=== PATIENT | female | born 1940 | race Caucasian/White ===

== ENCOUNTER 2017-04-04 11:09 | Inpatient (IN) | payer MEDICARE ==
[~2017-04-04] VITALS: Ht 165.1 cm; Wt 79.9 kg
[2017-04-04 12:14] LABS: BASOPHILS % (AUTO) 0 % (0-10); EOSINOPHILS % (AUTO) 0 % (0-10); LYMPHOCYTES # (AUTO) 0.5 X 10^3 (1.0-4.0); LYMPHOCYTES % (AUTO) 3 % (12-44); MEAN CORPUSCULAR HEMOGLOBIN 29 PG (25-34); MEAN CORPUSCULAR HGB CONC 34 G/DL (32-36); MEAN CORPUSCULAR VOLUME 86 FL (80-99); MEAN PLATELET VOLUME 10.8 FL (7.4-10.4); MONOCYTES # (AUTO) 1.3 X 10^3 (0.0-1.0); MONOCYTES % (AUTO) 9 % (0-12); NEUTROPHILS # (AUTO) 12.9 X 10^3 (1.8-7.8); NEUTROPHILS % (AUTO) 88 % (42-75); PLATELET COUNT 196 10^3/uL (130-400); RED BLOOD COUNT 4.53 10^6/uL (4.35-5.85); RED CELL DISTRIBUTION WIDTH 12.5 % (10.0-14.5); WHITE BLOOD COUNT 14.7 10^3/uL (4.3-11.0)
[2017-04-04] MEDS ORDERED: ACETAMINOPHEN 500 MG TAB (TYLENOL) PO PRN ×2 (12:15→15:45)
[2017-04-04 12:26] LABS: ALBUMIN 3.9 GM/DL (3.2-4.5); BILIRUBIN,TOTAL 0.8 MG/DL (0.1-1.0); CALCIUM 9.5 MG/DL (8.5-10.1); POTASSIUM 3.7 MMOL/L (3.6-5.0); TOTAL PROTEIN 6.6 GM/DL (6.4-8.2)
[2017-04-04 12:38] LABS: PROTHROMBIN TIME PATIENT 13.3 SEC (12.2-14.7)
[2017-04-04 12:46] LABS: BAND NEUTROPHILS 6 %; LYMPHOCYTES % (MANUAL) 9 %; NEUTROPHILS % (MANUAL) 73 %
--- NOTE | 2017-04-04 12:47 | Diagnostic Imaging Report ---
INDICATION: Chills and nausea and fever Frontal chest obtained at 1235 hrs pm. Heart is borderline in size. Aorta is tortuous. There is alveolar infiltrate in the left midlung suspicious for pneumonia. The right lung is clear. There is no pneumothorax or pleural fluid. IMPRESSION: Alveolar infiltrate in left midlung suspicious for pneumonia. Followup is recommended. Dictated by: Dictated on workstation # [id number]
[2017-04-04] MEDS ORDERED: NS (IVPB) 250 ML ONE (12:59)
[2017-04-04] MEDS ORDERED: cefTRIAXone 1 GM (ROCEPHIN) VIAL IV STA (13:00)
[2017-04-04] MEDS ORDERED: NS IV PRN (13:00)
--- NOTE | 2017-04-04 13:56 | ED Fever ---
History of Present Illness General Chief Complaint: Fever-Adult/Adol Stated Complaint: N/V/FEVER Nursing Triage Note: AMB TO ROOM REPORTS THAT SHE WOKE UP AT 1130 LAST NIGHT WITH CHILL AND NAUSEA. FEVER AT HOME WAS 101 Sepsis Screen: Possible Sepsis Risk Source: patient, family (daughter) Exam Limitations: no limitations History of Present Illness Time seen by provider: 13:30 Initial Comments 76yo female patient presents to the ED with c/o chills, fever, and nausea beginning last night at 2330. patient states today she continues to c/o malaise. Fever at home was 101. Timing/Duration: constant, yesterday Fever Quality: greater than 100.5 F Fever Therapy [employer]: none Allergies and Home Medications Allergies Coded Allergies: No Known Drug Allergies (Unverified , 04/04/17) Home Medications Aspirin 81 Mg Tablet.dr, 81 MG PO DAILY, (Reported) Calcium Polycarbophil 625 Mg Tablet, 625 MG PO DAILY, (Reported) Gemfibrozil 600 Mg Tablet, 600 MG PO BID, (Reported) Glucosamine Sulfate 2Kcl 1,000 Mg Tablet, 1,000 MG PO 1500, (Reported) Levothyroxine Sodium 50 Mcg Tablet, 50 MCG PO DAILY, (Reported) Pantoprazole Sodium 40 Mg Tablet.dr, 40 MG PO HS, (Reported) Constitutional: chills, fever, malaise, other (fatigue) EENTM: no symptoms reported Respiratory: No cough, No dyspnea on exertion, No hemoptysis, No orthopnea, No phlegm, short of breath, No wheezing Cardiovascular: No chest pain, No palpitations, No syncope Gastrointestinal: No abdominal pain, No constipation, No diarrhea, No nausea, No vomiting Genitourinary: No decreased output, No dysuria, No frequency, No pain Musculoskeletal: no symptoms reported Skin: no symptoms reported Psychiatric/Neurological: No Symptoms Reported All Other Systems Reviewed Negative Unless Noted: Yes (Negative excepted noted.) Past Gvglbqb-Qwwxag-Esqqzi Hx Patient Social History Alcohol Use: Denies Use Recreational Drug Use: No Smoking Status: Never a Smoker Recent Foreign Travel: No Contact w/Someone Who Travel: No Recent Infectious Disease Expo: No Surgeries History of Surgeries: Yes Surgeries: Tonsillectomy Respiratory History of Respiratory Disorde: No Cardiovascular History of Cardiac Disorders: No Neurological History of Neurological Disord: No Genitourinary History of Genitourinary Disor: No Gastrointestinal History of Gastrointestinal Di: No Musculoskeletal History of Musculoskeletal Dis: No Endocrine History of Endocrine Disorders: No HEENT History of HEENT Disorders: No Cancer History of Cancer: No Psychosocial History of Psychiatric Problem: No Integumentary History of Skin or Integumenta: No Reviewed Nursing Assessment Reviewed/Agree w Nursing PMH: Yes Family Medical History Significant Family History: No Pertinent Family Hx Physical Exam Vital Signs Vital Sign - Last 12Hours 04/04/17 11:18 Temp 100.6 Pulse 96 Resp 18 B/P (MAP) 114/62 Pulse Ox 93 O2 Delivery Room Air Capillary Refill : Less Than 3 Seconds General Appearance: WD/WN, no apparent distress HEENT: PERRL/EOMI, normal ENT inspection, TMs normal, pharynx normal Neck: supple, normal inspection Respiratory: lungs clear, normal breath sounds, no respiratory distress, no accessory muscle use Cardiovascular: normal peripheral pulses, regular rate, rhythm, no edema, no murmur Gastrointestinal: normal bowel sounds, non tender, soft, no organomegaly Extremities: no pedal edema, no calf tenderness, normal capillary refill Neurologic/Psychiatric: alert, normal mood/affect, oriented x 3 Skin: normal color, warm/dry Focused Exam Evaluation Lactate Level Laboratory Tests 04/04/17 12:20: Lactic Acid Level 1.04 Lactic Acid Level Laboratory Tests Test 04/04/17 12:20 Lactic Acid Level 1.04 MMOL/L (0.50-2.00) Progress/Results/Core Measures Results/Orders Lab Results Laboratory Tests Test 04/04/17 11:41 04/04/17 12:20 Range/Units White Blood Count 14.7 H 4.3-11.0 10^3/uL Red Blood Count 4.53 4.35-5.85 10^6/uL Hemoglobin 13.3 11.5-16.0 G/DL Hematocrit 39 35-52 % Mean Corpuscular Volume 86 80-99 FL Mean Corpuscular Hemoglobin 29 25-34 PG Mean Corpuscular Hemoglobin Concent 34 32-36 G/DL Red Cell Distribution Width 12.5 10.0-14.5 % Platelet Count 196 130-400 10^3/uL Mean Platelet Volume 10.8 H 7.4-10.4 FL Neutrophils (%) (Auto) 88 H 42-75 % Lymphocytes (%) (Auto) 3 L 12-44 % Monocytes (%) (Auto) 9 0-12 % Eosinophils (%) (Auto) 0 0-10 % Basophils (%) (Auto) 0 0-10 % Neutrophils # (Auto) 12.9 H 1.8-7.8 X 10^3 Lymphocytes # (Auto) 0.5 L 1.0-4.0 X 10^3 Monocytes # (Auto) 1.3 H 0.0-1.0 X 10^3 Eosinophils # (Auto) 0.0 0.0-0.3 10^3/uL Basophils # (Auto) 0.0 0.0-0.1 10^3/uL Neutrophils % (Manual) 73 % Lymphocytes % (Manual) 9 % Monocytes % (Manual) 12 % Band Neutrophils 6 % Blood Morphology Comment NORMAL Sodium Level 140 135-145 MMOL/L Potassium Level 3.7 3.6-5.0 MMOL/L Chloride Level 106 98-107 MMOL/L Carbon Dioxide Level 23 21-32 MMOL/L Anion Gap 11 5-14 MMOL/L Blood Urea Nitrogen 15 7-18 MG/DL Creatinine 1.00 0.60-1.30 MG/DL Estimat Glomerular Filtration Rate 54 BUN/Creatinine Ratio 15 Glucose Level 112 H 70-105 MG/DL Calcium Level 9.5 8.5-10.1 MG/DL Total Bilirubin 0.8 0.1-1.0 MG/DL Aspartate Amino Transf (AST/SGOT) 23 5-34 U/L Alanine Aminotransferase (ALT/SGPT) 12 0-55 U/L Alkaline Phosphatase 54 40-136 U/L Total Protein 6.6 6.4-8.2 GM/DL Albumin 3.9 3.2-4.5 GM/DL Prothrombin Time 13.3 12.2-14.7 SEC INR Comment 1.0 0.8-1.4 Activated Partial Thromboplast Time 27 24-35 SEC Lactic Acid Level 1.04 0.50-2.00 MMOL/L Micro Results Microbiology 04/04/17 Influenza Types A,B Antigen (DEJUAN) - Final, Complete My Orders Orders - SANDRA HERNANDEZ Cbc With Automated Diff (04/04/17 12:05) Comprehensive Metabolic Panel (04/04/17 12:05) Lactic Acid Analyzer (04/04/17 12:05) Blood Culture (04/04/17 12:05) Sputum Culture (04/04/17 12:05) Ua Culture If Indicated (04/04/17 12:05) Protime With Inr (04/04/17 12:05) Partial Thromboplastin Time (04/04/17 12:05) Chest 1 View, Ap/Pa Only (04/04/17 12:05) Acetaminophen Tablet (Tylenol Tablet) (04/04/17 12:15) Saline Lock/Iv-Start (04/04/17 12:05) Saline Lock/Iv-Start (04/04/17 12:05) Ekg Tracing (04/04/17 12:05) Vital Signs Adult Sepsis Patie Q1H (04/04/17 12:05) Remove Rings In Anticipation O (04/04/17 12:05) Influenza A And B Antigens (04/04/17 12:05) Manual Differential (04/04/17 11:41) Ns Iv 1000 Ml (Sodium Chloride 0.9%) (04/04/17 13:00) Ceftriaxone Injection (Rocephin Injectio (04/04/17 13:00) Ns (Ivpb) (Sodium Chloride 0.9%) (04/04/17 12:59) Medications Given in ED Vital Signs/I&O Vital Sign - Last 12Hours 04/04/17 11:18 Temp 100.6 Pulse 96 Resp 18 B/P (MAP) 114/62 Pulse Ox 93 O2 Delivery Room Air Blood Pressure Mean: 79 ECG Initial ECG Impression Date: Apr 04, 2017 Initial ECG Impression Time: 12:37 Initial ECG Rate: 82 Initial ECG Rhythm: Normal Sinus Initial ECG Intervals: Normal Initial ECG Impression: Normal Initial ECG Comparisson: No Previous ECG Available Comment sinus rhythm. No STEMI or arrhythmia noted. ECG reviewed with Dr. Stubbs. Diagnostic Imaging Diagonstic Imaging: Xray Plain Films/CT/US/NM/MRI: chest Comments Frontal chest obtained at 1235 hrs pm. Heart is borderline in size. Aorta is tortuous. There is alveolar infiltrate in the left midlung suspicious for pneumonia. The right lung is clear. There is no pneumothorax or pleural fluid. IMPRESSION: Alveolar infiltrate in left midlung suspicious for pneumonia. Followup is recommended. Dictated by: Dictated on workstation # [id number] Reviewed: Reviewed by Me Departure Communication (Admissions) Time/Spoke to Admitting Phy: 15:[address] deepak reyes graciously accepts patient to his medical service for IV antibiotics, IVF, and further management. Progress Notes patient seen and evaluated. Labs, ECG, and CXR obtained. Patient was given Rocephin 1 g in the ED x1 dose. All laboratory findings, diagnostic study findings, and plan for admission discussed with the patient. patient verbalizes understanding and agrees with the treatment plan.Plan for admission discussed with Dr. Stubbs, he agrees with the plan of care. Impression Impression: Primary Impression: Sepsis Qualified Codes: A41.9 - Sepsis, unspecified organism Additional Impression: Pneumonia Qualified Codes: J18.9 - Pneumonia, unspecified organism Disposition: ADMITTED INPATIENT Condition: Stable Admissions Decision to Admit Reason: Admit from ER (General) Decision to Admit/Date: Apr 04, 2017 Time/Decision to Admit Time: 13:55 Departure-Patient Inst. Referrals: DEEPAK REYES MD (PCP/Family) Primary Care Physician SANDRA HERNANDEZ Apr 04, 2017 13:56
[2017-04-04 15:20] VITALS: BP 88/51
[2017-04-04] MEDS ORDERED: AZITHROMYCIN 500 MG/NS 250 ML IVPB IV NR ×2 (15:39)
[2017-04-04] MEDS ORDERED: PANT40TA3 PO (15:41)
[2017-04-04] MEDS ORDERED: GEMF600T3 PO (15:41)
[2017-04-04] MEDS ORDERED: LEVO50TA6 PO (15:41)
[2017-04-04] MEDS ORDERED: CALC625T14 PO (15:43)
[2017-04-04] MEDS ORDERED: GLUC100016 PO (15:43)
[2017-04-04] MEDS ORDERED: ASPI-983 PO (15:43)
[2017-04-04] MEDS ORDERED: ONDANSETRON 4 MG/2 ML (SDV) Z0FRAN IV PRN (15:45)
[2017-04-04] MEDS ORDERED: IBUPROFEN 600 MG (MOTRIN) TAB PO PRN (15:45)
[2017-04-04] MEDS ORDERED: CATHETER FLUSH 10 ML SYR IV PRN ×2 (15:45)
[2017-04-04 16:11] VITALS: BP 114/62
[2017-04-04] MEDS ORDERED: RT-ALBUTEROL SULF 2.5 MG/3 ML PRE-MIX VIAL IH PRN (16:30)
[2017-04-04] MEDS: NS IV 1000 ML 1,000 ML IV SCH ×3 (16:48→23:45)
[2017-04-04 16:53] LABS: BILIRUBIN,URINE NEGATIVE (NEGATIVE); KETONES,URINE NEGATIVE (NEGATIVE); LEUKOCYTE ESTERASE ,URINE 2+ (NEGATIVE); NITRITE,URINE NEGATIVE (NEGATIVE); PH,URINE 6 (5-9); PROTEIN,URINE NEGATIVE (NEGATIVE); UROBILINOGEN,URINE NORMAL (NORMAL)
[2017-04-04] MEDS ORDERED: INFLUENZA TRIvalent 2017-2018 0.5 ML/45 MCG SYR IM ONE (17:00)
[2017-04-04 17:06] LABS: SQUAMOUS EPITHELIAL CELL,UR RARE /HPF; WBC,URINE 0-2 /HPF
[2017-04-04] MEDS ORDERED: ENOXAPARIN 40 MG/0.4 ML (LOVENOX) SYR SC SCH (19:00)
--- NOTE | 2017-04-04 19:05 | History & Physical ---
History of Present Illness History of Present Illness Reason for visit/HPI 76 yo F admitted for overnight observation for left lung pneumonia- pt report she woke up last night with severe nausea and vomiting; she had a fever of 101F as well and felt severely ill so she decided to come to the ER. Pt reports she had a similar issue about 4 weeks ago but she did fluid hydration and got better. This time though she felt more ill. Chest xray showed a left mid-lung opacity pneumonia. Pt reports her urine was dark and odorous so she thought she might have an UTI. UA was negative for UTI. Pt has been having worsening GERD so she recently restarted her PPI. ER course- cultures obtained- WBC noted to be elevated- and febrile so she met sepsis criteria. She was given IVF and rocephin as well as azithromycin. Her lactic acid was normal. Pt was admitted to room 419 for observation. Date of Admission Apr 04, 2017 at 14:05 Date Seen by Provider: Apr 04, 2017 Time Seen by Provider: 18:30 I consulted on this patient on 04/04/17 19:00 Attending Physician Serjio Greco MD Admitting Physician Serjio Greco MD Consult Allergies and Home Medications Allergies Coded Allergies: No Known Drug Allergies (Unverified , 04/04/17) Home Medications Aspirin 81 Mg Tablet.dr, 81 MG PO DAILY, (Reported) Calcium Polycarbophil 625 Mg Tablet, 625 MG PO DAILY, (Reported) Gemfibrozil 600 Mg Tablet, 600 MG PO BID, (Reported) Glucosamine Sulfate 2Kcl 1,000 Mg Tablet, 1,000 MG PO 1500, (Reported) Levothyroxine Sodium 50 Mcg Tablet, 50 MCG PO DAILY, (Reported) Pantoprazole Sodium 40 Mg Tablet.dr, 40 MG PO HS, (Reported) Past Ooxnhbs-Swxduu-Opwlwa Hx Patient Social History Marrital Status: Alcohol Use: Denies Use Recreational Drug Use: No Smoking Status: Never a Smoker Physical Abuse Screen: No Sexual Abuse: No Recent Foreign Travel: No Contact w/other who traveled: No Recent Infectious Disease Expo: No Surgeries Yes Tonsillectomy Respiratory No Cardiovascular No Neurological No Genitourinary No Gastrointestinal Yes Gastroesophageal Reflux Musculoskeletal No Endocrine History of Endocrine Disorders: No HEENT History of HEENT Disorders: No Cancer No Psychosocial History of Psychiatric Problem: No Integumentary History of Skin or Integumenta: No Review of Systems Review of Systems General: Chills, Night Sweats, Fatigue HEENT: No Head Aches, No Visual Changes, No Eye Pain Pulmonary: No Dyspnea, No Cough Cardiovascular: No: Chest Pain, Palpitations, Orthopnea Gastrointestinal: Nausea, Vomiting, No: Abdominal Pain Genitourinary: No Dysuria, No Frequency Musculoskeletal: No: neck pain, shoulder pain Neurological: No: Weakness, Numbness, Incoordination Physical Exam Vital Signs Vital Sign - Last 12Hours 04/04/17 11:18 Temp 100.6 Pulse 96 Resp 18 B/P (MAP) 114/62 Pulse Ox 93 O2 Delivery Room Air Capillary Refill : Less Than 3 Seconds General Appearance: No Apparent Distress, WD/WN HEENT: PERRL/EOMI Neck: Full Range of Motion, Supple Respiratory: Chest Non Tender, No Accessory Muscle Use, No Respiratory Distress , No Crackles, Decreased Breath Sounds (mid left lung), No Respiratory Distress , No Rhonci, No Stridor Cardiovascular: Regular Rate, Rhythm, No Edema, No JVD, No Murmur Gastrointestinal: Normal Bowel Sounds, Non Tender, Soft Back: Normal Inspection Extremity: Non Tender, No Calf Tenderness Neurologic/Psychiatric: Alert, Oriented x3, No Motor/Sensory Deficits, Normal Mood/Affect Skin: Normal Color, Warm/Dry, Cool Lymphatic: No Adenopathy Assessment/Plan Assessment/Plan Assessment/Plan 76 yo F Sepsis due to respiratory source- Left pneumonia - continue rocephin, azithromycin- IVF- monitor cultures. GERD- on H2 juancho- pt will continue her PPI as an outpt. avoid triggers. nausea/vomiting- improved- will advance diet as tolerated. DVT ppx: lovenox daily Dispo: admitted for overnight observation- will give pt a dose of rocephin tomorrow- plan to d/c to home on 5 more days of cefdinir and 3 days of azithromycin. Continue IVF. Monitor N/V. Plan to repeat cxr in 6 weeks to follow up resolution of pneumonia. Problems: Clinical Quality Measures DVT/VTE Risk/Contraindication: Risk Factor Score Per Nursin RFS Level Per Nursing on Admit: 3=High SERJIO GRECO MD Apr 04, 2017 19:05
[2017-04-04] MEDS: FAMOTIDINE 20 MG (PEPCID) TABLET PO SCH (19:53)
[2017-04-04 20:05] VITALS: BP 121/72
[2017-04-04] MEDS: CATHETER FLUSH 10 ML SYR IV SCH (21:35)
[2017-04-04 23:52] VITALS: BP 120/64
[2017-04-05] MEDS: NS IV 1000 ML 1,000 ML IV SCH ×2 (03:47→08:02)
[2017-04-05 04:17] VITALS: BP_SYST 101; BP_SYST 138; BP_DIAS 56; BP_DIAS 63
[2017-04-05] MEDS: CATHETER FLUSH 10 ML SYR IV SCH ×2 (05:16→08:02)
[2017-04-05 06:13] LABS: BASOPHILS % (AUTO) 0 % (0-10); EOSINOPHILS # (AUTO) 0.1 10^3/uL (0.0-0.3); EOSINOPHILS % (AUTO) 1 % (0-10); LYMPHOCYTES # (AUTO) 0.7 X 10^3 (1.0-4.0); LYMPHOCYTES % (AUTO) 9 % (12-44); MEAN CORPUSCULAR HEMOGLOBIN 29 PG (25-34); MEAN CORPUSCULAR HGB CONC 33 G/DL (32-36); MEAN CORPUSCULAR VOLUME 89 FL (80-99); MEAN PLATELET VOLUME 10.6 FL (7.4-10.4); MONOCYTES # (AUTO) 0.6 X 10^3 (0.0-1.0); MONOCYTES % (AUTO) 7 % (0-12); NEUTROPHILS # (AUTO) 6.8 X 10^3 (1.8-7.8); NEUTROPHILS % (AUTO) 83 % (42-75); PLATELET COUNT 145 10^3/uL (130-400); RED BLOOD COUNT 3.48 10^6/uL (4.35-5.85); RED CELL DISTRIBUTION WIDTH 12.8 % (10.0-14.5); WHITE BLOOD COUNT 8.1 10^3/uL (4.3-11.0)
[2017-04-05 06:27] LABS: ALANINE AMINOTRANSFERASE 8 U/L (0-55); ALBUMIN 2.8 GM/DL (3.2-4.5); ANION GAP 6 MMOL/L (5-14); ASPARTATE AMINO TRANSFERASE 14 U/L (5-34); BILIRUBIN,TOTAL 0.5 MG/DL (0.1-1.0); BLOOD UREA NITROGEN 11 MG/DL (7-18); BUN/CREATININE RATIO 16; CALCIUM 7.6 MG/DL (8.5-10.1); CARBON DIOXIDE 21 MMOL/L (21-32); CHLORIDE 117 MMOL/L (98-107); GFR ESTIMATED > 60; GLUCOSE 90 MG/DL (70-105); POTASSIUM 3.3 MMOL/L (3.6-5.0); SODIUM 144 MMOL/L (135-145); TOTAL PROTEIN 4.7 GM/DL (6.4-8.2)
--- NOTE | 2017-04-05 07:17 | Progress Note (SOAP) ---
Subjective Subjective Date Seen by Provider: Apr 05, 2017 Time Seen by Provider: 07:13 76 yo F admitted for pneumonia; pt reports she feels well and ready to go home - her back is starting to hurt due to the bed being uncomfortable. Denies fevers. Her chest feels a little heavy and a little discomfort when the nurses have her take a deep breath. I was contacted at 710am by lab that 1 of 3 culture bottles are growing gram + [place] that has a lot of gas production- suspected clostridium Review of Systems General: No Chills, No Night Sweats, Fatigue HEENT: Head Aches, No Visual Changes, No Eye Pain Pulmonary: No Dyspnea, No Cough Cardiovascular: Chest Pain, No: Palpitations, Orthopnea Gastrointestinal: No: Nausea, Vomiting, Abdominal Pain Genitourinary: No Dysuria, No Frequency Musculoskeletal: No: neck pain, shoulder pain Neurological: No: Weakness, Numbness, Incoordination All Other Systems Reviewed All Other Systems Reviewed: Yes (Negative excepted noted.) Objective Exam Vital Signs Vital Signs Date Time Temp Pulse Resp B/P (MAP) Pulse Ox O2 Delivery O2 Flow Rate FiO2 04/05/17 04:17 97.7 68 20 101/56 92 Room Air 04/04/17 23:52 98.6 69 18 120/64 95 Room Air 04/04/17 21:00 Room Air 04/04/17 20:05 98.6 67 20 121/72 94 Room Air 04/04/17 19:26 90 Room Air 04/04/17 16:19 92 Room Air 04/04/17 16:11 68 92 04/04/17 15:20 92 Room Air 04/04/17 15:20 97.7 70 18 88/51 92 Room Air 04/04/17 15:00 98.8 70 18 96 Room Air 04/04/17 11:18 100.6 96 18 114/62 93 Room Air General Appearance: No Apparent Distress, WD/WN HEENT: PERRL/EOMI Neck: Full Range of Motion, Supple Respiratory: Chest Non Tender, No Accessory Muscle Use, No Respiratory Distress , No Crackles, Decreased Breath Sounds (mid left lung), No Respiratory Distress , No Rhonci, No Stridor Cardiovascular: Regular Rate, Rhythm, No Edema, No JVD, No Murmur Gastrointestinal: Normal Bowel Sounds, Non Tender, Soft Back: Normal Inspection Extremity: Non Tender, No Calf Tenderness Neurologic/Psychiatric: Alert, Oriented x3, No Motor/Sensory Deficits, Normal Mood/Affect Skin: Normal Color, Warm/Dry, Cool Lymphatic: No Adenopathy Results Lab Laboratory Tests 04/04/17 11:41: White Blood Count 14.7H, Red Blood Count 4.53, Hemoglobin 13.3, Hematocrit 39, Mean Corpuscular Volume 86, Mean Corpuscular Hemoglobin 29, Mean Corpuscular Hemoglobin Concent 34, Red Cell Distribution Width 12.5, Platelet Count 196, Mean Platelet Volume 10.8H, Neutrophils (%) (Auto) 88H, Lymphocytes (%) (Auto) 3L, Monocytes (%) (Auto) 9, Eosinophils (%) (Auto) 0, Basophils (%) (Auto) 0, Neutrophils # (Auto) 12.9H, Lymphocytes # (Auto) 0.5L, Monocytes # (Auto) 1.3H, Eosinophils # (Auto) 0.0, Basophils # (Auto) 0.0, Neutrophils % (Manual) 73, Lymphocytes % (Manual) 9, Monocytes % (Manual) 12, Band Neutrophils 6, Blood Morphology Comment NORMAL, Sodium Level 140, Potassium Level 3.7, Chloride Level 106, Carbon Dioxide Level 23, Anion Gap 11, Blood Urea Nitrogen 15, Creatinine 1.00, Estimat Glomerular Filtration Rate 54, BUN/Creatinine Ratio 15 , Glucose Level 112H, Calcium Level 9.5, Total Bilirubin 0.8, Aspartate Amino Transf (AST/SGOT) 23, Alanine Aminotransferase (ALT/SGPT) 12, Alkaline Phosphatase 54, Total Protein 6.6, Albumin 3.9 04/04/17 12:20: Prothrombin Time 13.3, INR Comment 1.0, Activated Partial Thromboplast Time 27, Lactic Acid Level 1.04 04/04/17 16:45: Urine Color YELLOW, Urine Clarity CLEAR, Urine pH 6, Urine Specific [place] 1.010L, Urine Protein NEGATIVE, Urine Glucose (UA) NEGATIVE, Urine Ketones NEGATIVE, Urine Nitrite NEGATIVE, Urine Bilirubin NEGATIVE, Urine Urobilinogen NORMAL, Urine Leukocyte Esterase 2+H, Urine RBC (Auto) NEGATIVE, Urine RBC NONE , Urine WBC 0-2, Urine Squamous Epithelial Cells RARE, Urine Crystals NONE, Urine Bacteria NEGATIVE, Urine Casts NONE, Urine Mucus NEGATIVE, Urine Culture Indicated NO 04/05/17 05:30: White Blood Count 8.1, Red Blood Count 3.48L, Hemoglobin 10.2#L, Hematocrit 31L , Mean Corpuscular Volume 89, Mean Corpuscular Hemoglobin 29, Mean Corpuscular Hemoglobin Concent 33, Red Cell Distribution Width 12.8, Platelet Count 145, Mean Platelet Volume 10.6H, Neutrophils (%) (Auto) 83H, Lymphocytes (%) (Auto) 9L, Monocytes (%) (Auto) 7, Eosinophils (%) (Auto) 1, Basophils (%) (Auto) 0, Neutrophils # (Auto) 6.8, Lymphocytes # (Auto) 0.7L, Monocytes # (Auto) 0.6, Eosinophils # (Auto) 0.1, Basophils # (Auto) 0.0, Sodium Level 144, Potassium Level 3.3L, Chloride Level 117#H, Carbon Dioxide Level 21, Anion Gap 6, Blood Urea Nitrogen 11, Creatinine 0.70, Estimat Glomerular Filtration Rate > 60, BUN/ Creatinine Ratio 16, Glucose Level 90, Calcium Level 7.6L, Total Bilirubin 0.5, Aspartate Amino Transf (AST/SGOT) 14, Alanine Aminotransferase (ALT/SGPT) 8, Alkaline Phosphatase 40, Total Protein 4.7L, Albumin 2.8L Microbiology 04/04/17 Influenza Types A,B Antigen (DEJUAN) - Final, Complete Assessment/Plan Assessment/Plan Assessment/Plan 76 yo F Sepsis due to respiratory source- Left pneumonia - continue rocephin, azithromycin- IVF- monitor cultures. GERD- on H2 juancho- pt will continue her PPI as an outpt. avoid triggers. nausea/vomiting- improved- will advance diet as tolerated. hypokalemia- regular diet, will supplement with one time KCl tab. hypothyroidism- continue levothyroxine. DVT ppx: lovenox daily Dispo: admitted for overnight observation- will discharge to home today- will monitor the blood cultures- suspect contaminant. Pt does not appear ill and parameters including vitals, labs and symptoms are all improved. Problems: Clinical Quality Measures DVT/VTE Risk/Contraindication: Risk Factor Score Per Nursin RFS Level Per Nursing on Admit: 3=High DEEPAK GRECO MD Apr 05, 2017 07:17
[2017-04-05] MEDS ORDERED: KCL 10 MEQ TAB (MICRO K) PO NR (07:30)
[2017-04-05 08:00] VITALS: BP 112/54
[2017-04-05] MEDS: FAMOTIDINE 20 MG (PEPCID) TABLET PO SCH (08:01)
[2017-04-05] MEDS ORDERED: AZITHROMYCIN 250 MG TAB (ZITHROMAX) PO SCH (09:00)
[2017-04-05] MEDS ORDERED: INFLUENZA TRIvalent 2017-2018 0.5 ML/45 MCG SYR IM ONE (10:11)
[2017-04-05] MEDS ORDERED: AZIT250T5 PO (11:06)
[2017-04-05] MEDS ORDERED: CEFD300C3 PO (11:06)
--- NOTE | 2017-04-05 11:10 | Discharge Inst-Simple/Standard ---
Discharge Inst-Standard Discharge Medications New, Converted or Re-Newed RX: Transmitted to Pharmacy Patient Instructions/Follow Up Plan of Care/Instructions/FU: complete the cefdinir and azithromycin for the pneumonia advance diet as tolerated- fluid hydration Activity as Tolerated: Yes Discharge Diet: Eat Small Frequent Meals Return to The Hospital For: worsening breathing worsening chest pain Planned Outpatient Orders/Ref. Pneu Vac Indicated: Yes DEEPAK GRECO MD Apr 05, 2017 11:10
--- NOTE | 2017-04-05 11:13 | Discharge Summary ---
Diagnosis/Chief Complaint Date of Admission Apr 04, 2017 at 14:05 Date of Discharge April 05, 2017 Reason Hospital Visit 76 yo F admitted for overnight observation for left lung pneumonia- pt report she woke up last night with severe nausea and vomiting; she had a fever of 101F as well and felt severely ill so she decided to come to the ER. Pt reports she had a similar issue about 4 weeks ago but she did fluid hydration and got better. This time though she felt more ill. Chest xray showed a left mid-lung opacity pneumonia. Pt reports her urine was dark and odorous so she thought she might have an UTI. UA was negative for UTI. Pt has been having worsening GERD so she recently restarted her PPI. ER course- cultures obtained- WBC noted to be elevated- and febrile so she met sepsis criteria. She was given IVF and rocephin as well as azithromycin. Her lactic acid was normal. Pt was admitted to room 419 for observation. Discharge Summary Hospital Course Labs Laboratory Tests 04/04/17 11:41: White Blood Count 14.7H, Mean Platelet Volume 10.8H, Neutrophils (%) (Auto) 88H , Lymphocytes (%) (Auto) 3L, Neutrophils # (Auto) 12.9H, Lymphocytes # (Auto) 0.5L, Monocytes # (Auto) 1.3H, Glucose Level 112H 04/04/17 12:20: 04/04/17 16:45: Urine Specific [place] 1.010L, Urine Leukocyte Esterase 2+H 04/05/17 05:30: Mean Platelet Volume 10.6H, Neutrophils (%) (Auto) 83H, Lymphocytes (%) (Auto) 9L, Lymphocytes # (Auto) 0.7L, Red Blood Count 3.48L, Hemoglobin 10.2#L, Hematocrit 31L, Potassium Level 3.3L, Chloride Level 117#H, Calcium Level 7.6L, Total Protein 4.7L, Albumin 2.8L Procedures None. Discharge Physical Examination Allergies: Coded Allergies: No Known Drug Allergies (Unverified , 04/04/17) Vitals & I&Os Vital Signs Date Time Temp Pulse Resp B/P (MAP) Pulse Ox O2 Delivery O2 Flow Rate FiO2 04/05/17 08:00 97.5 67 20 112/54 95 Room Air Discharge Home Medications Reviewed and agree with Discharge Medication list on patient's Discharge Instruction sheet Instructions to Patient/Family Please see electronic discharge instructions given to patient. Clinical Quality Measures DVT/VTE Risk/Contraindication: Risk Factor Score Per Nursin RFS Level Per Nursing on Admit: 3=High DEEPAK GRECO MD Apr 05, 2017 11:13
[2017-04-05 11:45] VITALS: BP 145/69
--- NOTE | 2017-04-05 13:48 | Diagnostic Imaging Report ---
PA and lateral views of the chest. INDICATION: Cough and sepsis. FINDINGS: There is slight improvement in the patchy left perihilar infiltrate compared to 04/04/2017. The right lung is clear. The heart size is normal. There is suggestion of a small hiatal hernia. No effusion or pneumothorax. Mediastinum and zen appear unremarkable. IMPRESSION: Improved left perihilar infiltrate. Dictated by: Dictated on workstation # [id number]
== END 2017-04-05 13:06 | disposition home or self-care (01) | DRG 871 ==
LOC: ER 11:15 → 4TH 14:05
PROVIDERS: ADMIT Family Medicine; ATTEND Family Medicine
DX: A41.9 Sepsis, unspecified organism (principal); J18.9 Pneumonia, unspecified organism; K21.9 Gastro-esophageal reflux disease without esophagitis; Z23 Encounter for immunization
CPT/HCPCS: 36415; 71010; 71020; 80053; 81000; 83605; 85007; 85025; 85027; 85610; 85730; 87040; 87804; 93005; 94664; 94760

== ENCOUNTER → 2017-12-31 | Outpatient (CLI) | payer MEDICARE, OTHER ==
[~2017-12-31] MED LIST: ASPI-983 PO; AZIT250T12 PO; CALC625T14 PO; CEFD300C3 PO; GEMF600T4 PO; GLUC100016 PO; LEVO50TA6 PO; PANT40TA3 PO
== END ==
LOC: CARD 11:14
PROVIDERS: ATTEND Internal Medicine Interventional Cardiology
DX: R07.9 Chest pain, unspecified (principal); E78.5 Hyperlipidemia, unspecified; R94.31 Abnormal electrocardiogram [ECG] [EKG]
CPT/HCPCS: 93306

== ENCOUNTER → 2018-01-24 | Outpatient (CLI) | payer MEDICARE, OTHER ==
[~2018-01-24] VITALS: Ht 165.1 cm; Wt 77.1 kg
[~2018-01-24] MED LIST changes: +CATHETER FLUSH 10 ML SYR IV PRN; +REGADENOSON 0.4 MG/5 ML SYR (LEXISCAN) IV ONE
[2018-01-24 09:20] VITALS: BP 135/73
[2018-01-24 09:24] VITALS: BP 175/75
[2018-01-24 14:20] VITALS: BP 135/73
--- NOTE | 2018-01-24 14:20 | Cardiology Stress Test Report ---
Stress Test Report Type of NM Stress Test: Test Type: LEXISCAN 0.4MG/5ML Date of Procedure/Referring: Date of Procedure: Jan 24, 2018 PCP Natali Chase MD Admitting Physician Serjio Louis MD Indications: Chest pain, abnormal EKG Baseline Heart Rate: 55 Baseline Blood Pressure: Blood Pressure Systolic: 135 Blood Pressure Diastolic: 73 Baseline EKG: Baseline EKG: sinus rhythm Summary & Conclusion: Summary: The patient was brought to the stress lab after informed consent was taken. Stress test was performed according to the Lexiscan protocol. 0.4 mg of IV Lexiscan was given. Low-grade exercise was performed. Baseline EKG showed sinus rhythm at 55 BPM. Initial blood pressure was 135/73 mmHg. Maximum heart rate was 92 bpm and blood pressure 175/75 mmHg. Patient did not have any chest pain, arrhythmias or ST segment changes during the stress test. 10.69 mCi of Myoview were given for rest imaging and 30.6 mCi of Myoview given for stress imaging. Transient ischemic dilatation score 1.07, EF 71 percent. Normal wall motion. Normal myocardial perfusion imaging during rest and stress. Conclusion: Pharmacological stress test was negative for ischemia. Normal LV function with no wall motion abnormalities. Normal myocardial perfusion imaging during rest and stress. Natali CHASE MD Jan 24, 2018 2:20 pm
== END ==
LOC: CARD 07:35
PROVIDERS: ATTEND Internal Medicine Interventional Cardiology
DX: R07.9 Chest pain, unspecified (principal); R94.31 Abnormal electrocardiogram [ECG] [EKG]; E78.5 Hyperlipidemia, unspecified
CPT/HCPCS: 78452; 93017

== ENCOUNTER 2018-02-26 05:35 | Outpatient (CLI) | payer MEDICARE, OTHER ==
[~2018-02-26] VITALS: Ht 165.1 cm; Wt 77.1 kg
[~2018-02-26 05:35] MED LIST changes: -CATHETER FLUSH 10 ML SYR IV PRN; -REGADENOSON 0.4 MG/5 ML SYR (LEXISCAN) IV ONE
== END 2018-02-26 14:07 | disposition home or self-care (01) ==
LOC: PREOP 05:35
PROVIDERS: ATTEND Surgery
DX: Z01.818 Encounter for other preprocedural examination (principal)

== ENCOUNTER 2018-03-05 09:47 | Day surgery (SDC) | payer MEDICARE, OTHER ==
[~2018-03-05] VITALS: Ht 165.1 cm; Wt 77.1 kg
[2018-03-05] MEDS ORDERED: LACTATED RINGERS 1,000 ML IV ONE (09:54)
[2018-03-05] MEDS ORDERED: LACTATED RINGERS 1,000 ML IV STA (09:57)
[2018-03-05] MEDS ORDERED: HURRICAINE EXT TUBE (BENZOCAINE) XX PRN (10:00)
[2018-03-05] MEDS ORDERED: MIDAZOLAM 2 MG/2 ML (VERSED) VIAL ONE (10:14)
[2018-03-05] MEDS ORDERED: PROPOFOL INJECTION 50 ML IV ONE (10:14)
--- NOTE | 2018-03-05 10:53 | Progress Note-Pre Operative ---
Pre-Operative Progress Note H&P Reviewed The H&P was reviewed, patient examined and no changes noted. Time Seen by Provider: 10:02 Date H&P Reviewed: Mar 05, 2018 Time H&P Reviewed: 10:03 Pre-Operative Diagnosis: Chronic Gastritis, Screening colonoscopy TONY MCKEON DO Mar 05, 2018 10:53
[2018-03-05 10:55] VITALS: BP 140/68
--- NOTE | 2018-03-05 11:43 | Progress Note-Post Operative ---
Post-Operative Progess Note Surgeon (s)/Director Summer Sessions (s) Surgeon TONY MCKEON DO Director Summer Sessions: none Pre-Operative Diagnosis Chronic Gastritis, Screening colonoscopy Post-Operative Diagnosis Gastritis Colon Polyps Diverticula Int Hem Procedure & Operative Findings Date of Procedure 03/05/18 Procedure Performed/Findings EGD with bx Colon with snare Anesthesia Type IV sedation by EMPLOYMENT LAW SPECIALIST Estimated Blood Loss Estimated blood loss (mL): scant Specimens/Packing Specimens Removed Antral bx Asc colon polyp transverse colon polyp x 2 Desc colon polyp TONY MCKEON DO Mar 05, 2018 11:43
[2018-03-05 11:45] VITALS: BP 122/56
--- NOTE | 2018-03-05 11:45 | Endoscopy Discharge Instruct ---
Endo Procedure/Findings Findings 1.: Gastritis 2.: Polyp 3.: Diverticulosis 4.: Internal Hemorrhoids Discharge Instructions - Activity: You might feel a little sleepy until tomorrow. This is due to the medicine you received to relax you. Until tomorrow, you should: NOT drive a car, operate machinery or power tools. NOT drink any alcoholic beverages. NOT make any important decisions or sign importortant papers. Do not return to work until tomorrow, unless otherwise instructed. Resume previous activities tomorrow. Diet: Start by taking liquids. If you tolerate liquids, advance to solid food. Make an appointment for one week. Instructions: 1.: Colonscopy in 3 years Notify Physician - If you experience excessive bleeding, unusual abdominal pain, fever, or chest pain, contact your doctor immediately. Follow-Up: - I have received and understand the above instructions and will call my doctor if I have any further questions. Patient Signature Date Nurse Signature Other (Relationship) TONY MCKEON DO Mar 05, 2018 11:45
[2018-03-05] MEDS ORDERED: HURRICAINE EXT TUBE (BENZOCAINE) ONE (11:54)
[2018-03-05 12:15] VITALS: BP 135/74
[2018-03-05 13:00] VITALS: BP 135/74
--- NOTE | 2018-03-05 13:40 | Anesthesia-General Post-Op ---
MAC Patient Condition Mental Status/LOC: Same as Preop Cardiovascular: Satisfactory Nausea/Vomiting: Absent Respiratory: Satisfactory Pain: Controlled Complications: Absent Post Op Complications Complications None Follow Up Care/Instructions Patient Instructions None needed. Anesthesiology Discharge Order Discharge Order Patient is doing well, no complaints, stable vital signs, no apparent adverse anesthesia problems. No complications reported per nursing. ERIKA DIAZ CRNA Mar 05, 2018 13:40
--- NOTE | 2018-03-06 00:19 | OPERATIVE REPORT ---
DATE OF SERVICE: PREOPERATIVE DIAGNOSES: 1. Chronic gastritis. 2. Screening colonoscopy. POSTOPERATIVE DIAGNOSES: 1. Gastritis. 2. Colon polyps. 3. Diverticula. 4. Internal hemorrhoids. 5. Hiatal hernia. PROCEDURES: 1. EGD with biopsy. 2. Colonoscopy with snare polypectomy. SURGEON: Cade Cuba DO SALES AND LEASING CONSULTANT: None. ANESTHESIA: IV sedation by the PHYSICAL THERAPY TECHNICIAN. SPECIMEN: 1. Biopsy from the antrum. 2. An ascending colon polyp. 3. A transverse colon polyp x2. 4. A descending colon polyp. BLOOD LOSS: Scant. FLUIDS: Per anesthesia. POSTOPERATIVE CONDITION: Stable. INDICATION FOR PROCEDURE: The patient is a 77-year-old female who needed a screening colonoscopy. She has also a history of complaint of some chronic gastritis and needed an EGD. FINDINGS: The patient had some gastritis and she also had four polyps in the colon, some diverticula and some internal hemorrhoids. PROCEDURE NOTE: After informed consent was obtained, the patient was brought to the endoscopy suite, placed in the bed with the left lateral decubitus position. She was administered IV sedation by the PHYSICAL THERAPY TECHNICIAN who then monitored her vitals the entire time, started by doing the EGD, pushed the scope down the mouth through the esophagus and into the stomach, saw some gastritis in the antrum. Push into the duodenum, looked fine. Pulled back into the antrum and did a biopsy and then pulled back and retroflexed the scope. The patient had a large hiatal hernia, took a picture of this and then pulled back into the esophagus. GE junction looked okay and at this point, pulled the scope up the esophagus, which was also okay and then out the mouth. The patient then switched gloves and went to the other side, switched cameras, started the colonoscopy, inserted the scope, pushed all the way to the cecum. On the way in, noted some diverticula took picture of this and then in the transverse colon, saw a couple of polyps, did a snare polypectomy of this and saw a larger polyp. The snare polypectomy of this and then pushed into the ascending colon, saw another large polyp, removed this, took a picture of appendiceal orifice, noted the ileocecal valve and then slowly withdrew the scope insufflating to look circumferentially at the andino of the cecum through the ascending colon. We saw the spot we previously biopsied to the hepatic flexure, then down the transverse colon, a splenic flexure and then into the descending colon and descending colon saw another large polyp, removed this with a snare polypectomy and then continued down in the sigmoid and finally into the rectum, retroflexed in the rectal vault, saw some internal hemorrhoids, took a picture of this and then removed the scope. The patient tolerated this procedure well and she was recovered in endoscopy suite. Job ID: [id number] DocumentID: [id number] Dictated Date: 03/05/2018 17:09:29 Hand Tool Lapper Date: 03/06/2018 00:19:09 Dictated By: CADE CUBA DO
== END 2018-03-05 13:00 | disposition home or self-care (01) ==
LOC: ENDO 09:47
PROVIDERS: ATTEND Surgery
DX: Z12.11 Encounter for screening for malignant neoplasm of colon (principal); D12.2 Benign neoplasm of ascending colon; D12.3 Benign neoplasm of transverse colon; D12.4 Benign neoplasm of descending colon; K57.30 Diverticulosis of large intestine without perforation or abscess without bleeding; K64.8 Other hemorrhoids; K29.70 Gastritis, unspecified, without bleeding; K21.9 Gastro-esophageal reflux disease without esophagitis; K44.9 Diaphragmatic hernia without obstruction or gangrene; Z79.82 Long term (current) use of aspirin; Z79.899 Other long term (current) drug therapy
CPT/HCPCS: 88305

== ENCOUNTER → 2018-03-22 | Outpatient (CLI) | payer MEDICARE, OTHER ==
--- NOTE | 2018-03-27 12:16 | Diagnostic Imaging Report ---
INDICATION: Routine screening. COMPARISON: 04/19/2016 and 07/19/2010. TECHNIQUE: 2D and 3D bilateral screening mammography was performed with CAD. FINDINGS: Scattered fibroglandular densities are identified bilaterally. An intraparenchymal lymph node in the outer left breast appears stable. No spiculated mass or malignant appearing microcalcifications are seen. There are benign calcifications present. The axillae are unremarkable. IMPRESSION: No mammographic features suspicious for malignancy are identified. ACR BI-RADS Category 2: Benign findings. Result letter will be mailed to the patient. Note: At least 10% of breast cancer is not imaged by mammography. Dictated by: Dictated on workstation # [id number]
== END ==
LOC: RAD 08:46
PROVIDERS: ATTEND Family Medicine
DX: Z12.31 Encounter for screening mammogram for malignant neoplasm of breast (principal)
CPT/HCPCS: 77067

== ENCOUNTER 2018-11-27 18:06 | Emergency (ER) | payer MEDICARE, OTHER ==
[~2018-11-27] VITALS: Ht 165.1 cm; Wt 77.1 kg
[~2018-11-27 18:06] MED LIST changes: -GEMF600T4 PO; +GEMF600T8 PO
[2018-11-27] MEDS ORDERED: KETOROLAC 30 MG/ML VIAL IVP ONE (18:30)
[2018-11-27 18:32] LABS: BASOPHILS % (AUTO) 0 % (0-10); EOSINOPHILS # (AUTO) 0.2 10^3/uL (0.0-0.3); EOSINOPHILS % (AUTO) 2 % (0-10); HEMATOCRIT 38 % (35-52); HEMOGLOBIN 12.7 G/DL (11.5-16.0); LYMPHOCYTES # (AUTO) 0.4 X 10^3 (1.0-4.0); LYMPHOCYTES % (AUTO) 6 % (12-44); MEAN CORPUSCULAR HEMOGLOBIN 28 PG (25-34); MEAN CORPUSCULAR HGB CONC 34 G/DL (32-36); MEAN CORPUSCULAR VOLUME 84 FL (80-99); MEAN PLATELET VOLUME 10.2 FL (7.4-10.4); MONOCYTES # (AUTO) 0.7 X 10^3 (0.0-1.0); MONOCYTES % (AUTO) 10 % (0-12); NEUTROPHILS # (AUTO) 5.6 X 10^3 (1.8-7.8); NEUTROPHILS % (AUTO) 82 % (42-75); PLATELET COUNT 194 10^3/uL (130-400); RED CELL DISTRIBUTION WIDTH 12.3 % (10.0-14.5); WHITE BLOOD COUNT 6.8 10^3/uL (4.3-11.0)
--- NOTE | 2018-11-27 18:33 | ED Headache ---
General Stated Complaint: HEADACHE Source: patient Exam Limitations: no limitations, physical impairment History of Present Illness Date Seen by Provider: Nov 27, 2018 Time Seen by Provider: 18:15 Initial Comments The patient presents to ER by private conveyance with chief complaint of a headache this and going on for about a week. It starts in her hospital region radiates into her neck and global. She has no photophobia or phonophobia. No history of migraines or headaches. She also is having some frequency of urine and only able put out small amounts so she went to her primary care provider at [facility] and had a urinalysis which she was told showed infection so they put her on Bactrim. She started experiencing some nausea for the first 2 or 3 days on the Bactrim and then that went away. She will finish the Bactrim in another couple days. She's not having any fevers chills diarrhea constipation or abdominal pain chest pain shortness of breath cough. She has a history of hypot hyroidism and does take aspirin. No history of heart attack stroke peripheral vascular disease, hypertension. No problems with walking, increased falls or balance disturbances. No weakness numbness tingling paresthesia seizures. She used ibuprofen 600 mg yesterday and it gave her about 2 hours of headache relief. She went back to her primary care today and yesterday and was given a shot of pain medicine in the hip which did help her pain for several hours but then it came back. Allergies and Home Medications Allergies Coded Allergies: No Known Drug Allergies (Unverified , 04/04/17) Home Medications Aspirin 81 Mg Tablet., 81 MG PO DAILY, (Reported) Calcium Polycarbophil 625 Mg Tablet, 625 MG PO DAILY, (Reported) Gemfibrozil 600 Mg Tablet, 600 MG PO BID, (Reported) Glucosamine Sulfate 2Kcl 1,000 Mg Tablet, 1,000 MG PO 1500, (Reported) Levothyroxine Sodium 50 Mcg Tablet, 50 MCG PO DAILY, (Reported) Pantoprazole Sodium 40 Mg Tablet., 40 MG PO HS, (Reported) Patient Home Medication List Home Medication List Reviewed: Yes Review of Systems Review of Systems Constitutional: No chills, No diaphoresis Eyes: Denies Blindness, Denies Blurred Vision, Denies Pain, Denies Photophobia Ears, Nose, Mouth, Throat: denies ear pain, denies ear discharge Respiratory: No cough, No wheezing Cardiovascular: No chest pain, No palpitations Gastrointestinal: No abdominal pain; nausea (occ); No vomiting Genitourinary: No discharge, No dysuria; frequency; No incontinence Musculoskeletal: No back pain, No joint pain; neck pain Past Jmmlcaq-Arwxjf-Kasqnb Hx Patient Social History Alcohol Use: Denies Use Recreational Drug Use: No Smoking Status: Never a Smoker Recent Foreign Travel: No Contact w/Someone Who Travel: No Recent Hopitalizations: No Immunizations Up To Date Date of Pneumonia Vaccine: Feb 27, 2016 Seasonal Allergies Seasonal Allergies: No Past Medical History Surgeries: Yes Hysterectomy, Tonsillectomy Respiratory: No Cardiac: No Neurological: No Genitourinary: No Gastrointestinal: Yes Gastroesophageal Reflux Musculoskeletal: No Endocrine: No HEENT: No Cancer: No Skin Psychosocial: No Integumentary: No Family Medical History No Pertinent Family Hx Physical Exam Vital Signs Vital Signs - First Documented 11/27/18 18:09 Temp 98.8 Pulse 83 Resp 18 B/P (MAP) 132/71 (91) Pulse Ox 95 O2 Delivery Room Air Capillary Refill : Height, Weight, BMI Height: 5'5.00" Weight: 170lbs. 0.0oz. 77.832734hi; 28.3 BMI Method:Stated General Appearance: WD/WN, no apparent distress HEENT: PERRL/EOMI, normal ENT inspection, TMs normal, pharynx normal (mildly dry oropharynx) Neck: non-tender, full range of motion, supple, normal inspection Cardiovascular: normal peripheral pulses, regular rate, rhythm Respiratory: lungs clear, normal breath sounds, no respiratory distress, no accessory muscle use Gastrointestinal: normal bowel sounds, non tender, soft, no organomegaly Extremities: normal range of motion, normal capillary refill Psychiatric: alert, oriented x 3 Crainal Nerves: normal hearing, normal speech, PERRL Coordination/Gait: normal finger to nose, normal gait Motor/Sensory: no motor deficit, no sensory deficit, no pronator drift Skin: normal color, warm/dry Progress/Results/Core Measures Results/Orders Lab Results Laboratory Tests Test 11/27/18 18:24 11/27/18 18:29 Range/Units White Blood Count 6.8 4.3-11.0 10^3/uL Red Blood Count 4.47 4.35-5.85 10^6/uL Hemoglobin 12.7 11.5-16.0 G/DL Hematocrit 38 35-52 % Mean Corpuscular Volume 84 80-99 FL Mean Corpuscular Hemoglobin 28 25-34 PG Mean Corpuscular Hemoglobin Concent 34 32-36 G/DL Red Cell Distribution Width 12.3 10.0-14.5 % Platelet Count 194 130-400 10^3/uL Mean Platelet Volume 10.2 7.4-10.4 FL Neutrophils (%) (Auto) 82 H 42-75 % Lymphocytes (%) (Auto) 6 L 12-44 % Monocytes (%) (Auto) 10 0-12 % Eosinophils (%) (Auto) 2 0-10 % Basophils (%) (Auto) 0 0-10 % Neutrophils # (Auto) 5.6 1.8-7.8 X 10^3 Lymphocytes # (Auto) 0.4 L 1.0-4.0 X 10^3 Monocytes # (Auto) 0.7 0.0-1.0 X 10^3 Eosinophils # (Auto) 0.2 0.0-0.3 10^3/uL Basophils # (Auto) 0.0 0.0-0.1 10^3/uL Neutrophils % (Manual) 77 % Lymphocytes % (Manual) 8 % Monocytes % (Manual) 9 % Eosinophils % (Manual) 2 % Basophils % (Manual) 0 % Band Neutrophils 4 % Blood Morphology Comment NORMAL Sodium Level 138 135-145 MMOL/L Potassium Level 3.7 3.6-5.0 MMOL/L Chloride Level 108 H 98-107 MMOL/L Carbon Dioxide Level 18 L 21-32 MMOL/L Anion Gap 12 5-14 MMOL/L Blood Urea Nitrogen 13 7-18 MG/DL Creatinine 0.90 0.60-1.30 MG/DL Estimat Glomerular Filtration Rate 60 BUN/Creatinine Ratio 14 Glucose Level 102 70-105 MG/DL Calcium Level 9.0 8.5-10.1 MG/DL Corrected Calcium 9.2 8.5-10.1 MG/DL Total Bilirubin 0.4 0.1-1.0 MG/DL Aspartate Amino Transf (AST/SGOT) 38 H 5-34 U/L Alanine Aminotransferase (ALT/SGPT) 51 0-55 U/L Alkaline Phosphatase 154 H 40-136 U/L C-Reactive Protein High Sensitivity 14.81 H 0.00-0.50 MG/DL Total Protein 6.7 6.4-8.2 GM/DL Albumin 3.7 3.2-4.5 GM/DL Urine Color YELLOW Urine Clarity SLIGHTLY CLOUDY Urine pH 6 5-9 Urine Specific [place] 1.020 1.016-1.022 Urine Protein 1+ H NEGATIVE Urine Glucose (UA) NEGATIVE NEGATIVE Urine Ketones NEGATIVE NEGATIVE Urine Nitrite NEGATIVE NEGATIVE Urine Bilirubin 1+ H NEGATIVE Urine Urobilinogen 1 NORMAL MG/DL Urine Leukocyte Esterase 2+ H NEGATIVE Urine RBC (Auto) NEGATIVE NEGATIVE Urine RBC NONE /HPF Urine WBC 2-5 /HPF Urine Squamous Epithelial Cells 2-5 /HPF Urine Crystals NONE /LPF Urine Bacteria TRACE /HPF Urine Casts NONE /LPF Urine Mucus MODERATE H /LPF Urine Culture Indicated YES My Orders Orders - DOM WHITE Ketorolac Injection (Toradol Injection) (11/27/18 18:30) Cbc With Automated Diff (11/27/18 18:21) Comprehensive Metabolic Panel (11/27/18 18:21) Hs C Reactive Protein (11/27/18 18:21) Ua Culture If Indicated (11/27/18 18:21) Ct Head Wo (11/27/18 18:21) Manual Differential (11/27/18 18:24) Acetaminophen Tablet (Tylenol Tablet) (11/27/18 18:45) Ed Iv/Invasive Line Start (11/27/18 18:37) Ns Iv 500 Ml (Sodium Chloride 0.9%) (11/27/18 18:37) Urine Culture (11/27/18 18:29) Ct Angio Head/Neck (11/27/18 19:48) Ed Iv/Invasive Line Start (11/27/18 19:48) Ns Iv 1000 Ml (Sodium Chloride 0.9%) (11/27/18 19:48) Iohexol Injection (Omnipaque 350 Mg/Ml 1 (11/27/18 20:00) Received Contrast (Hold Metformin- Contr (11/27/18 20:00) Sodium Chloride Flush (Catheter Flush Sy (11/27/18 20:00) Ns (Ivpb) (Sodium Chloride 0.9% Ivpb Bag (11/27/18 20:00) Medications Given in ED Current Medications Medications Dose Ordered Sig/Stephenie Route Start Time Stop Time Status Last Admin Dose Admin Acetaminophen 1,000 mg ONCE ONCE PO 11/27/18 18:45 11/27/18 18:46 DC 11/27/18 18:51 1,000 MG Iohexol 100 ml ONCE ONCE IV 11/27/18 20:00 11/27/18 20:01 DC 11/27/18 20:04 75 ML Ketorolac Tromethamine 30 mg ONCE ONCE IVP 11/27/18 18:30 11/27/18 18:31 DC 11/27/18 18:33 30 MG Sodium Chloride 10 ml NEEDED PRN IV 11/27/18 20:00 11/27/18 20:04 10 ML Sodium Chloride 100 ml ONCE ONCE IV 11/27/18 20:00 11/27/18 20:01 DC 11/27/18 20:04 80 ML Sodium Chloride 500 ml @ 0 mls/hr Q0M ONCE IV 11/27/18 18:37 11/27/18 18:40 DC 11/27/18 18:51 500 MLS/HR Sodium Chloride 1,000 ml @ 0 mls/hr Q0M ONCE IV 11/27/18 19:48 11/27/18 19:49 DC 11/27/18 19:58 0 MLS/HR Vital Signs/I&O 11/27/18 11/27/18 18:09 19:35 Temp 98.8 Pulse 83 74 Resp 18 16 B/P (MAP) 132/71 (91) 117/78 (91) Pulse Ox 95 95 O2 Delivery Room Air Room Air Progress Progress Note #1: Time: 18:36 Progress Note Urinalysis, labs, CT of the head. Toradol, Tylenol, 500 cc of fluid. Progress Note #2: Time: 19:34 Progress Note She does have neck pain however it's subacute going on for about a week of headache. The subarachnoid hemorrhage seems unlikely at this point. Labs and CT unremarkable except for a moderate elevation of the CRP which could be related to a recent bladder infection. Meningitis seems unlikely. The patient is neurologically intact and has no other red flag signs. The CT of the head and neck with contrast angiography would help us rule out cervical artery stenosis as well as give us a better impression of the brain. Right eye 20/40 left eye 20/50 combined 20/40. Wearing glasses. Pain is reduced now 1 out of 10 after Toradol and Tylenol. If CT angiogram is negative we can set her up for MRI outpatient. Diagnostic Imaging Diagonstic Imaging: CT Plain Films/CT/US/NM/MRI: head (noncontrast) Comments NAME: MARIMAR JARRETT [facility] REC#: [id number] PT STATUS: REG ER : 1940 PHYSICIAN: DOM WHITE MD ADMIT DATE: 11/27/18/ER Signed Date of Exam:11/27/18 CT HEAD WO PROCEDURE: CT head without contrast. TECHNIQUE: Multiple contiguous axial images were obtained through the brain without the use of intravenous contrast. Auto Exposure Controls were utilized during the CT exam to meet ALARA standards for radiation dose reduction. INDICATION: Diffuse head and posterior neck pain for 7 days. FINDINGS: Noncontrast CT scan of the head demonstrates no mass effect, midline shift, hemorrhage or extraaxial fluid collections. Banks-white matter differentiation is normal. Ventricles, cortical sulci and basilar cisterns appear normal. Visualized portions of the skull appear normal. IMPRESSION: Normal CT scan of the head. Dictated by: Dictated on workstation # [id number] Dict: 11/27/181857 Trans: 11/27/181904 [id number] Interpreted by: KEVIN SIBLEY MD Electronically signed by: KEVIN SIBLEY MD 11/27/181904 Reviewed: Reviewed by Ny Diagonstic Imaging: CT (angiogram) Plain Films/CT/US/NM/MRI: head (and neck) Comments NAME: MARIMAR JARRETT [facility] REC#: [id number] PT STATUS: REG ER : 1940 PHYSICIAN: DOM WHITE MD ADMIT DATE: 11/27/18/ER Draft Date of Exam:11/27/18 CT ANGIO HEAD/NECK INDICATION: Neck pain for 7 days, head pain all over. No history of cancer. COMPARISON STUDY: Noncontrast CT scanning of the head from earlier today. FINDINGS: CTA NECK: The CTA of the neck demonstrates mild plaque at the takeoff of the left subclavian artery. The vertebral arteries are of normal size. No stenosis or dissection in the vertebral arteries is present. Right carotid artery demonstrates minimal calcification of the bulb. No stenosis is present. The left carotid artery appears normal. The soft tissues of the neck have a normal appearance. No abnormal adenopathy is present. Some degenerative changes are present in the cervical spine. There is no fracture or subluxation. CTA HEAD: The CTA of the head demonstrates normal contrast enhancement. Minimal calcifications are present in the carotid siphons. No aneurysms or AVMs are present. No filling defects or stenotic lesions are seen within the intracranial vessels. IMPRESSION: CTA of the head and neck demonstrates mild arterial sclerosis. No stenotic lesions are present. There are some degenerative changes of the cervical spine. Dictated on workstation # [id number] Dict: 11/27/182008 Trans: 11/27/182021 [id number] Interpreted by: KEVIN SIBLEY MD Electronically signed by: Reviewed: Reviewed by Me Departure Impression Primary Impression: Headache Qualified Codes: R51 - Headache Additional Impression: History of UTI Disposition: HOME, SELF-CARE Condition: Improved Departure-Patient Inst. Decision time for Depature: 20:29 Referrals: RENEE HDZ MD (PCP/Family) Primary Care Physician Patient Instructions: Headache, Adult (DC) Add. Discharge Instructions: If her headache persists you can get the MRI set up and done outpatient and results can be sent to your primary care doctor. You can follow up next week to get results. Use Tylenol 650 mg every 6 hours and naproxen 500 mg twice daily as needed for headache. Please return to the ER if you have weakness, numbness, slurring speech, facial droop or other worrisome symptoms. Scripts Naproxen (Naprosyn) 500 Mg Tablet 500 MG PO BID for 14 Days, #30 TAB 0 Refills Prov: DOM WHITE 11/27/18 DOM WHITE Nov 27, 2018 18:33
[2018-11-27 18:35] LABS: CLARITY,URINE SLIGHTLY CLOUDY; COLOR,URINE YELLOW; GLUCOSE, URINE (UA) NEGATIVE (NEGATIVE); KETONES,URINE NEGATIVE (NEGATIVE); LEUKOCYTE ESTERASE ,URINE 2+ (NEGATIVE); NITRITE,URINE NEGATIVE (NEGATIVE); PH,URINE 6 (5-9); PROTEIN,URINE 1+ (NEGATIVE); UROBILINOGEN,URINE 1 MG/DL (NORMAL)
[2018-11-27] MEDS ORDERED: NS IV 500 ML 500 ML IV ONE (18:37)
[2018-11-27] MEDS ORDERED: ACETAMINOPHEN 500 MG TAB (TYLENOL) PO ONE (18:45)
[2018-11-27 18:46] LABS: BACTERIA,URINE TRACE /HPF; BILIRUBIN,URINE 1+ (NEGATIVE)
[2018-11-27 18:52] LABS: ALBUMIN 3.7 GM/DL (3.2-4.5); BILIRUBIN,TOTAL 0.4 MG/DL (0.1-1.0); CREATININE SERUM 0.9 MG/DL (0.60-1.30); POTASSIUM 3.7 MMOL/L (3.6-5.0); TOTAL PROTEIN 6.7 GM/DL (6.4-8.2)
--- NOTE | 2018-11-27 18:54 | NUR ---
REPORT TO ARIEL
--- NOTE | 2018-11-27 19:02 | Diagnostic Imaging Report ---
PROCEDURE: CT head without contrast. TECHNIQUE: Multiple contiguous axial images were obtained through the brain without the use of intravenous contrast. Auto Exposure Controls were utilized during the CT exam to meet ALARA standards for radiation dose reduction. INDICATION: Diffuse head and posterior neck pain for 7 days. FINDINGS: Noncontrast CT scan of the head demonstrates no mass effect, midline shift, hemorrhage or extraaxial fluid collections. Banks-white matter differentiation is normal. Ventricles, cortical sulci and basilar cisterns appear normal. Visualized portions of the skull appear normal. IMPRESSION: Normal CT scan of the head. Dictated by: Dictated on workstation # [id number]
--- NOTE | 2018-11-27 19:05 | NUR ---
pt resting in bed denies needs at this time. ivf infusing without difficulty. pt informed of anticipated wait times for lab/rad results.
[2018-11-27 19:08] LABS: BAND NEUTROPHILS 4 %; BASOPHILS % (MANUAL) 0 %; EOSINOPHILS % (MANUAL) 2 %; LYMPHOCYTES % (MANUAL) 8 %; MONOCYTES % (MANUAL) 9 %; NEUTROPHILS % (MANUAL) 77 %; RBC MORPH NORMAL
[2018-11-27 19:35] VITALS: BP 117/78
[2018-11-27] MEDS ORDERED: NS IV 1000 ML 1,000 ML IV ONE (19:48)
[2018-11-27] MEDS ORDERED: HOLD METFORMIN - RECEIVED CONTRAST 20 ML VIAL IV SCH (20:00)
[2018-11-27] MEDS ORDERED: CATHETER FLUSH 10 ML SYR IV PRN (20:00)
[2018-11-27] MEDS ORDERED: IOHEXOL 350 MG/ML 100 ML (OMNIPAQUE 350) VIAL IV ONE (20:00)
[2018-11-27] MEDS ORDERED: NS 100 ML (IVPB) BAG IV ONE (20:00)
--- NOTE | 2018-11-27 20:23 | Diagnostic Imaging Report ---
INDICATION: Neck pain for 7 days, head pain all over. No history of cancer. COMPARISON STUDY: Noncontrast CT scanning of the head from earlier today. FINDINGS: CTA NECK: The CTA of the neck demonstrates mild plaque at the takeoff of the left subclavian artery. The vertebral arteries are of normal size. No stenosis or dissection in the vertebral arteries is present. Right carotid artery demonstrates minimal calcification of the bulb. No stenosis is present. The left carotid artery appears normal. The soft tissues of the neck have a normal appearance. No abnormal adenopathy is present. Some degenerative changes are present in the cervical spine. There is no fracture or subluxation. CTA HEAD: The CTA of the head demonstrates normal contrast enhancement. Minimal calcifications are present in the carotid siphons. No aneurysms or AVMs are present. No filling defects or stenotic lesions are seen within the intracranial vessels. IMPRESSION: CTA of the head and neck demonstrates mild arterial sclerosis. No stenotic lesions are present. There are some degenerative changes of the cervical spine. Dictated by: Dictated on workstation # [id number]
[2018-11-27] MEDS ORDERED: NAPR-1071 PO (20:32)
[2018-11-27 20:52] VITALS: BP 131/65
== END 2018-11-27 20:50 | disposition home or self-care (01) ==
LOC: EDUNIT# 18:06 → ER 18:07
DX: R51 Headache (principal); E03.9 Hypothyroidism, unspecified; K21.9 Gastro-esophageal reflux disease without esophagitis; Z87.440 Personal history of urinary (tract) infections; Z79.82 Long term (current) use of aspirin; Z90.710 Acquired absence of both cervix and uterus; Z90.89 Acquired absence of other organs
CPT/HCPCS: 36415; 70450; 70496; 70498; 80053; 81000; 85007; 85027; 86141; 87088; 96361; 96374

== ENCOUNTER → 2019-05-28 | Outpatient (CLI) | payer MEDICARE, OTHER ==
[~2019-05-28] MED LIST changes: +NAPR-1071 PO
--- NOTE | 2019-05-28 12:11 | Diagnostic Imaging Report ---
INDICATION: Routine screening. Comparison is made with prior mammogram 03/22/2018 and 04/19/2016. 2-D and 3-D bilateral screening mammography was performed with a Computer Aided Detection (CAD) system. 3-D tomosynthesis was also performed and reviewed. FINDINGS: Scattered fibroglandular densities are identified bilaterally. Intraparenchymal lymph node upper outer left breast is again noted and appears stable. Vascular and benign parenchymal calcifications are again noted bilaterally. No spiculated mass or malignant appearing microcalcifications are seen. Axillae are unremarkable. IMPRESSION: No mammographic features suspicious for malignancy are identified. ACR BI-RADS Category 2: Benign findings. Result letter will be mailed to the patient. Note: At least 10% of breast cancer is not imaged by mammography. Dictated by: Dictated on workstation # [id number]
== END ==
LOC: RAD 09:28
PROVIDERS: ATTEND Family Medicine
DX: Z12.31 Encounter for screening mammogram for malignant neoplasm of breast (principal)
CPT/HCPCS: 77067

== ENCOUNTER → 2020-11-30 | Outpatient (CLI) | payer MEDICARE, OTHER ==
[~2020-11-30] MED LIST changes: +ASPI-1238 PO; -ASPI-983 PO; -GEMF600T8 PO; +GEMF600T88 PO; -PANT40TA3 PO; +PANT40TA52 PO
--- NOTE | 2020-11-30 14:00 | Diagnostic Imaging Report ---
INDICATION: Postmenopausal screening COMPARISON: Baseline FINDINGS: AP Spine L1-L4: [BMD (g/cm2): 1.013] [T-Score: -1.6] [Z-Score: -0.1] [BMD Previous: NA] [BMD % Change: NA] LT Hip Neck: [BMD (g/cm2): 0.819] [T-Score: -1.6] [Z-Score: 0.4] LT Hip Total: [BMD (g/cm2):1.003] [T-Score:0.0] [Z-Score: 1.7] [BMD Previous: NA] [BMD % Change: NA] RT Hip Neck: [BMD (g/cm2):0.821] [T-Score:-1.6] [Z-Score:0.4] RT Hip Total: [BMD (g/cm2):0.930] [T-score:-0.6] [Z-Score:1.1] [BMD Previous:NA] [BMD % Change:NA] *Indicates significant change from prior examination based on 95% confidence level. World Health Organization criteria for BMD interpretation classify patients as Normal (T-score at or above -1.0), Osteopenic (T-score between -1.0 and -2.5) or Osteoporotic (T-score at or below -2.5). LIMITATIONS AND MODIFICATION: None. FRACTURE RISK (FRAX SCORE): The ten year probability of (%): Major Osteoporotic Fracture: [NA] Hip Fracture: [NA] IMPRESSION: 1. Osteopenia (Low bone mass). 2. Baseline examination. 3. See below National Osteoporosis Foundation guidelines on when to potentially initiate pharmacologic therapy. Based on the National Osteoporosis Foundation Guidelines, pharmacologic treatment should be initiated in any of the following, unless clinical conditions suggest otherwise: * Any patient with prior fragility fracture of the hip or vertebrae. A spine fracture indicates 5X risk for subsequent spine fracture and 2X risk for subsequent hip fracture. * Osteoporosis (T-score <-2.5). * Postmenopausal women and men age 50 and older with low bone mass/osteopenia (T-score between -1.0 and -2.5) by DXA and 10-year major osteoporotic fracture greater than 20% or a 10-year probability of hip fracture greater than 3%. These fracture risks are supplied above in the FRAX score, if applicable. * Clinician judgement and/or patient preferences may indicate treatment for people with 10-year fracture probabilities above or below these levels. Dictated by: Dictated on workstation # [id number]
--- NOTE | 2020-11-30 17:20 | Diagnostic Imaging Report ---
INDICATION: Routine screening. COMPARISON is made with prior mammograms of 05/28/2019 and 03/22/2018. 2-D and 3-D bilateral screening mammography was performed with CAD. Scattered fibroglandular densities are identified bilaterally. Benign calcifications are noted. No spiculated mass or malignant appearing microcalcifications are seen. Axillae are unremarkable. IMPRESSION: BI-RADS Category 2. No mammographic features suspicious for malignancy are identified. ACR BI-RADS Category 2: Benign findings. Result letter will be mailed to the patient. Note: At least 10% of breast cancer is not imaged by mammography. Dictated by: Dictated on workstation # [id number]
== END ==
LOC: RAD 12:45
PROVIDERS: ATTEND Nurse Practitioner Family
DX: Z12.31 Encounter for screening mammogram for malignant neoplasm of breast (principal); M81.0 Age-related osteoporosis without current pathological fracture; M85.80 Other specified disorders of bone density and structure, unspecified site; M17.11 Unilateral primary osteoarthritis, right knee; M50.30 Other cervical disc degeneration, unspecified cervical region; M51.37 Other intervertebral disc degeneration, lumbosacral region; Z78.0 Asymptomatic menopausal state
CPT/HCPCS: 77063; 77067; 77080

== ENCOUNTER 2020-12-31 05:45 | Inpatient (IN) | payer MEDICARE, OTHER ==
[~2020-12-31] VITALS: Ht 165.1 cm; Wt 82.3 kg
[2020-12-31] MEDS ORDERED: FAMOTIDINE 20MG/2ML IV (PEPCID) IV STA (06:02)
[2020-12-31] MEDS ORDERED: morphine INJ 10 MG/ML 1ML (SYR OR VIAL) IVP ONE (06:15)
[2020-12-31] MEDS ORDERED: ONDANSETRON 4 MG/2 ML (SDV) Z0FRAN IVP ONE (06:15)
--- NOTE | 2020-12-31 06:16 | ED Abdominal Pain ---
General Chief Complaint: Abdominal/GI Problems Stated Complaint: RT ABD PAIN Nursing Triage Note: Pt arrival to ER via [facility] with complaint of R. Flank/Abd Pain. Pain at a 10/10. States that she believes its her gallbladder. Source of Information: Patient, EMS Exam Limitations: No Limitations History of Present Illness Date Seen by Provider: Dec 31, 2020 Time Seen by Provider: 05:55 Initial Comments 80-year-old female with past medical history of thyroid disease and per her gallbladder disease coming in due to right upper quadrant pain that is sharp, intermittent, worse after eating spicy foods, and started at 2 AM this morning. She says the pain radiates to her right flank. She states the first time this occurred was [place], was very severe, and she presented to an emergency department in [place]. She states she had a scan of her abdomen, and was later told she needed her gallbladder out. Shortly after this, her pain impr keily, and she opted to not have the surgery. Since then, she has the same pain 1-2 times per week. This week she has had it roughly 3 times, and it was significantly worse last night. Once again, she attributes it to spicy food that she had yesterday. She endorses nausea and nonbloody nonbilious vomiting. Nausea this morning, last time she vomited was over a week ago. She denies any associated fever, chest pain, shortness of breath, diarrhea, weakness, numbness, dysuria, urinary frequency, or any other concerns. She rarely drinks alcohol and does not smoke. She has had a hysterectomy but no other abdominal surgeries. Allergies and Home Medications Allergies Coded Allergies: No Known Drug Allergies (Unverified , 04/04/17) Home Medications Aspirin 81 Mg Tablet.dr, 81 MG PO DAILY, (Reported) Calcium Polycarbophil 625 Mg Tablet, 625 MG PO DAILY, (Reported) Gemfibrozil 600 Mg Tablet, 600 MG PO BID, (Reported) Glucosamine Sulfate 2Kcl 1,000 Mg Tablet, 1,000 MG PO 1500, (Reported) Levothyroxine Sodium 50 Mcg Tablet, 50 MCG PO DAILY, (Reported) Naproxen 500 Mg Tablet, 500 MG PO BID Prescribed by: DOM WHITE on 11/27/182031 Pantoprazole Sodium 40 Mg Tablet., 40 MG PO HS, (Reported) Patient Home Medication List Home Medication List Reviewed: Yes Review of Systems Review of Systems Constitutional: no symptoms reported; No fever EENTM: No Blurred Vision Respiratory: Denies Cough, Denies Shortness of Air Cardiovascular: Denies Chest Pain Gastrointestinal: Abdominal Pain, Nausea, Vomiting Genitourinary: Flank Pain Musculoskeletal: No no symptoms reported, No joint pain Skin: No rash Psychiatric/Neurological: Denies Anxiety, Denies Depressed Endocrine: No Symptoms Reported Hematologic/Lymphatic: No Symptoms Reported All Other Systems Reviewed Negative Unless Noted: Yes Past Eadqxrt-[id number]-[id number] Hx Patient Social History Tobacco Use?: No Use of E-Cig and/or Vaping dev: No Substance use?: No Alcohol Use?: No Pt feels they are or have been: No Immunizations Up To Date Influenza Vaccine Up-to-Date: No; Not Current Second COVID19 Vaccination Howard: 09/08 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: [employer] Seasonal Allergies Seasonal Allergies: No Past Medical History Surgeries: Yes (vein stripping legs) Hysterectomy, Tonsillectomy Respiratory: No Cardiac: Yes High Cholesterol Neurological: 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 0.0oz. [id number]; 23.00 BMI Method:Stated General Appearance: WD/WN, no apparent distress HEENT: PERRL/EOMI, pharynx normal Neck: non-tender, full range of motion, supple, normal inspection Respiratory: chest non-tender, lungs clear, normal breath sounds, no res piratory distress, no accessory muscle use Cardiovascular: regular rate, rhythm, no edema, no murmur Gastrointestinal: normal bowel sounds, soft; No distended, No guarding, No rebound; tenderness (Tender in the right upper quadrant with a positive Islas sign) Extremities: normal range of motion, non-tender, normal inspection Back: normal inspection, no CVA tenderness, no vertebral tenderness Neurologic/Psychiatric: no motor/sensory deficits, alert, normal mood/affect Skin: normal color, warm/dry Lymphatic: no adenopathy Focused Exam Lactate Level 12/31/20 06:20: Lactic Acid Level 0.77 Lactic Acid Level Laboratory Tests Test 12/31/20 06:20 Lactic Acid Level 0.77 MMOL/L (0.50-2.00) Progress/Results/Core Measures Results/Orders Lab Results Laboratory Tests Test 12/31/20 06:20 12/31/20 07:05 12/31/20 07:14 Range/Units White Blood Count 4.0 L 4.3-11.0 10^3/uL Red Blood Count 4.68 3.80-5.11 10^6/uL Hemoglobin 13.5 11.5-16.0 g/dL Hematocrit 42 35-52 % Mean Corpuscular Volume 89 80-99 fL Mean Corpuscular Hemoglobin 29 25-34 pg Mean Corpuscular Hemoglobin Concent 32 32-36 g/dL Red Cell Distribution Width 13.2 10.0-14.5 % Platelet Count 147 130-400 10^3/uL Mean Platelet Volume 10.8 9.0-12.2 fL Immature Granulocyte % (Auto) 1 % Neutrophils (%) (Auto) 75 42-75 % Lymphocytes (%) (Auto) 14 12-44 % Monocytes (%) (Auto) 10 0-12 % Eosinophils (%) (Auto) 1 0-10 % Basophils (%) (Auto) 1 0-10 % Neutrophils # (Auto) 3.0 1.8-7.8 10^3/uL Lymphocytes # (Auto) 0.5 L 1.0-4.0 10^3/uL Monocytes # (Auto) 0.4 0.0-1.0 10^3/uL Eosinophils # (Auto) 0.0 0.0-0.3 10^3/uL Basophils # (Auto) 0.0 0.0-0.1 10^3/uL Immature Granulocyte # (Auto) 0.0 0.0-0.1 10^3/uL Sodium Level 143 135-145 MMOL/L Potassium Level 3.5 L 3.6-5.0 MMOL/L Chloride Level 106 98-107 MMOL/L Carbon Dioxide Level 25 21-32 MMOL/L Anion Gap 12 5-14 MMOL/L Blood Urea Nitrogen 9 7-18 MG/DL Creatinine 0.85 0.60-1.30 MG/DL Estimat Glomerular Filtration Rate 64 BUN/Creatinine Ratio 11 Glucose Level 141 H 70-105 MG/DL Lactic Acid Level 0.77 0.50-2.00 MMOL/L Calcium Level 9.2 8.5-10.1 MG/DL Corrected Calcium 9.3 8.5-10.1 MG/DL Total Bilirubin 1.7 H 0.1-1.0 MG/DL Aspartate Amino Transf (AST/SGOT) 293 H 5-34 U/L Alanine Aminotransferase (ALT/SGPT) 144 H 0-55 U/L Alkaline Phosphatase 423 H 40-136 U/L Troponin I < 0.028 <0.028 NG/ML B-Type Natriuretic Peptide 83.2 <100.0 PG/ML Total Protein 6.8 6.4-8.2 GM/DL Albumin 3.9 3.2-4.5 GM/DL Lipase 44 8-78 U/L SARS-CoV-2 RNA (RT-PCR) Not Detected Not Detecte Urine Color YELLOW Urine Clarity CLEAR Urine pH 6.5 5-9 Urine Specific Stanton 1.010 L 1.016-1.022 Urine Protein NEGATIVE NEGATIVE Urine Glucose (UA) NEGATIVE NEGATIVE Urine Ketones 1+ H NEGATIVE Urine Nitrite NEGATIVE NEGATIVE Urine Bilirubin 1+ H NEGATIVE Urine Urobilinogen 4.0 < = 1.0 MG/DL Urine Leukocyte Esterase NEGATIVE NEGATIVE Urine RBC (Auto) NEGATIVE NEGATIVE Urine RBC NONE /HPF Urine WBC NONE /HPF Urine Squamous Epithelial Cells RARE /HPF Urine Crystals NONE /LPF Urine Bacteria NEGATIVE /HPF Urine Casts NONE /LPF Urine Mucus NEGATIVE /LPF Urine Culture Indicated NO My Orders Orders - MARIXA GRIJALVA MD Ct Abdomen/Pelvis W (12/31/20 06:02) Cbc With Automated Diff (12/31/20 06:02) Comprehensive Metabolic Panel (12/31/20 06:02) Lactic Acid Analyzer (12/31/20 06:02) Lipase (12/31/20 06:02) Ua Culture If Indicated (12/31/20 06:02) Troponin I (12/31/20 06:02) Ondansetron Injection (Zofran Injectio (12/31/20 06:15) Famotidine Injection (Pepcid Injection) (12/31/20 06:02) Ed Iv/Invasive Line Start (12/31/20 06:02) Morphine Injection (Morphine Injection (12/31/20 06:15) Ekg Tracing (12/31/20 06:09) BNP (12/31/20 06:36) Iohexol Injection (Omnipaque 350 Mg/Ml 1 (12/31/20 07:00) Ns (Ivpb) (Sodium Chloride 0.9% Ivpb Bag (12/31/20 07:00) Covid 19 Inhouse Test (12/31/20 06:59) Blood Culture (12/31/20 07:51) Lactated Ringers (Lr 1000 Ml Iv Solution (12/31/20 08:00) Piperacillin Sodium/Tazobactam (Zosyn Vi (12/31/20 08:00) Medications Given in ED Current Medications Medications Dose Ordered Sig/Stephenie Route Start Time Stop Time Status Last Admin Dose Admin Iohexol 100 ml ONCE ONCE IV 12/31/20 07:00 12/31/20 07:01 DC 12/31/20 06:52 100 ML Lactated Ringer's 1,000 ml @ 0 mls/hr Q0M ONCE IV 12/31/20 08:00 12/31/20 08:01 DC 12/31/20 09:06 0 MLS/HR Morphine Sulfate 4 mg ONCE ONCE IVP 12/31/20 06:15 12/31/20 06:16 DC 12/31/20 06:27 4 MG Ondansetron HCl 4 mg ONCE ONCE IVP 12/31/20 06:15 12/31/20 06:16 DC 12/31/20 06:27 4 MG Piperacillin Sod/ Tazobactam Sod 4.5 gm/Sodium Chloride 100 ml @ 200 mls/hr ONCE ONCE IV 12/31/20 08:00 12/31/20 08:29 DC 12/31/20 09:04 200 MLS/HR Sodium Chloride 80 ml ONCE ONCE IV 12/31/20 07:00 12/31/20 07:01 DC 12/31/20 06:52 80 ML Vital Signs/I&O 12/31/20 05:52 Temp 37.0 Pulse 65 Resp 20 B/P (MAP) 157/77 (103) Pulse Ox 97 O2 Delivery Room Air Blood Pressure Mean: 103 Progress Progress Note : Progress Note 80-year-old female with above history coming in due to right upper quadrant pain. ABCs were intact and vitals were stable on presentation although she is hypertensive. She says she often gets this hypertensive when she is in pain, and she does not require antihypertensive medications. An IV was placed and she was given morphine for pain and Zofran for her nausea. Differential includes cholecystitis especially given her history of gallbladder disease versus pancreatitis versus ulcerative disease versus less likely bowel obstruction versus less likely aortic aneurysm given the time course has been ongoing since July with intermittent issues versus some other etiology. Basic labs as well as LFTs, lactate, EKG and troponin to assess for atypical signs of ACS given it is upper abdominal pain. CT abdomen and pelvis with contrast will be ordered for further evaluation as well. EKG with sinus bradycardia. Blood pressure slightly elevated at that time, mental status normal, and she is not having any chest pain or any other pain at the time of EKG. Overall EKG appears similar to her prior 4 years ago. Also on review of her chart from previous years, her heart rate has been in the low 50s, so likely this is not that atypical for her. This would fall under the purview of asymptomatic bradycardia at this time, but we will continue to monitor. Labs significant for a low white blood count with a low lymphocyte count. This is nonspecific but could be due to a viral infection. After seeing this, Covid testing was ordered given the high rate in the community at this time. AST, ALT, and alk phos all elevated concerning for cholestatic pattern. Lactate normal making mesenteric ischemia less likely, however this was low on the differential. Troponin negative, and after 4 hours of constant pain with a negative high- sensitivity troponin, this is unlikely to be atypical ACS. CT imaging concerning for biliary duct dilated Tatian concerning for obstruction. Gallbladder is distended. I personally called and talked with the radiologist Dr. Lyons and he is recommending the patient need higher level of care for ERCP vs percutaneous drainage of gallbladder to decompress it. At that point, I am concerned the patient could progress to a sending cholangitis and being septic, blood cultures drawn, she was given Zosyn, and a bolus of IV fluids. Discussed the case with our surgeon on-call Dr. Jones, hospitalist team Dr. Medellin, and Dr. Becker at [facility]. The patient will be admitted here under Dr. Jones with Dr. Medellin consulted, take a leave of absence to go to [facility] for ERCP, and then come back (before midnight is the plan). Patient is agreeable to this plan. Discussed with Dr. Medellin regarding inpatient vs obs and she recommended inpatient at this time. Initial ECG Impression Date: Dec 31, 2020 Initial ECG Impression Time: 06:16 Initial ECG Rate: 46 Initial ECG Rhythm: S.Jos Comment Sinus bradycardia with a rate of 46, narrow QRS, normal axis, no significant ST changes, T wave inversions in leads III and aVF. Upon further review of her previous EKG in 2017 she had the T wave inversion in lead III and aVF was flattened and almost inverted. Overall this makes it a very similar EKG to 4 years ago. Departure Impression Primary Impression: Biliary obstruction Additional Impressions: RUQ pain Transaminitis Disposition: ADMITTED INPATIENT Condition: Stable Admissions Decision to Admit Reason: Admit from ER (General) Decision to Admit/Date: Dec 31, 2020 Time/Decision to Admit Time: 11:04 Transfer Transfer Progress Notes Spoke with [facility] in [place] as it was the patient's 1st preference for transfer at 07:51, they are unable to accommodate transfer but if we try back at 1pm they may be able to. Called [facility] for [place] Transfers at 07:55 and discussed case with them. They are working on finding a bed at this time. Called back from [facility] at 08:19 and they potentially could do ERCP if we will allow transfer back for admission. Called Dr. Jones at that time who is willing to admit and transfer as a leave of absence if they will do ERCP. Called back [facility] and now they are trying to get an accepting GI under these circumstances. At 10am [facility] still had not heard back from GI. At that time [facility] if [facility] would [facility] a patient under the same circumstances. Spoke with Dr. Becker at [facility] at 11:00am and he is agreeable to take the patient for ERCP if she is admitted to our facility in [place] and she can be transferred back. She will be admitted to us and then will technically take a leave of absence to go to [facility]. Departure-Patient Inst. Referrals: RENEE HDZ MD (PCP/Family) Primary Care Physician MARIXA GRIJALVA MD Dec 31, 2020 06:16
[2020-12-31 06:29] LABS: BASOPHILS % (AUTO) 1 % (0-10); EOSINOPHILS % (AUTO) 1 % (0-10); HEMATOCRIT 42 % (35-52); HEMOGLOBIN 13.5 g/dL (11.5-16.0); LYMPHOCYTES # (AUTO) 0.5 10^3/uL (1.0-4.0); LYMPHOCYTES % (AUTO) 14 % (12-44); MEAN CORPUSCULAR HEMOGLOBIN 29 pg (25-34); MEAN CORPUSCULAR HGB CONC 32 g/dL (32-36); MEAN CORPUSCULAR VOLUME 89 fL (80-99); MEAN PLATELET VOLUME 10.8 fL (9.0-12.2); MONOCYTES # (AUTO) 0.4 10^3/uL (0.0-1.0); MONOCYTES % (AUTO) 10 % (0-12); NEUTROPHILS % (AUTO) 75 % (42-75); PLATELET COUNT 147 10^3/uL (130-400)
[2020-12-31 06:40] LABS: ALBUMIN 3.9 GM/DL (3.2-4.5); CHLORIDE 106 MMOL/L (98-107); POTASSIUM 3.5 MMOL/L (3.6-5.0); SODIUM 143 MMOL/L (135-145)
[2020-12-31 06:41] LABS: CALCIUM 9.2 MG/DL (8.5-10.1)
[2020-12-31 06:42] LABS: GLUCOSE 141 MG/DL (70-105); TOTAL PROTEIN 6.8 GM/DL (6.4-8.2)
[2020-12-31 06:43] LABS: CARBON DIOXIDE 25 MMOL/L (21-32)
[2020-12-31 06:44] LABS: BILIRUBIN,TOTAL 1.7 MG/DL (0.1-1.0)
[2020-12-31 06:46] LABS: ALKALINE PHOSPHATASE 423 U/L (40-136); CREATININE SERUM 0.85 MG/DL (0.60-1.30); GFR ESTIMATED 64
[2020-12-31 06:47] LABS: BUN/CREATININE RATIO 11
[2020-12-31 06:49] LABS: ALANINE AMINOTRANSFERASE 144 U/L (0-55); LIPASE 44 U/L (8-78)
[2020-12-31] MEDS ORDERED: NS 100 ML (IVPB) BAG IV ONE (07:00)
[2020-12-31] MEDS ORDERED: IOHEXOL 350 MG/ML 100 ML (OMNIPAQUE 350) VIAL IV ONE (07:00)
--- NOTE | 2020-12-31 07:14 | Diagnostic Imaging Report ---
PROCEDURE: CT abdomen and pelvis with contrast. TECHNIQUE: Multiple contiguous axial images were obtained through the abdomen and pelvis after administration of intravenous contrast. Auto Exposure Controls were utilized during the CT exam to meet ALARA standards for radiation dose reduction. All CT scans use one or more of the following dose optimizing techniques: automated exposure control, MA and/or KvP adjustment based on patient size and exam type or iterative reconstruction. INDICATION: Right upper quadrant pain. FINDINGS: The gallbladder is distended measuring 13 cm in length with 5 cm maximal transverse dimension. There does appear to be at least one stone in its dependent portion, its wall is about 2 mm not grossly thickened and no appreciable pericholecystic edema. There is mild intra and moderate to severe extrahepatic bile duct dilatation. The extrahepatic duct measures a 15 mm maximal dimension. Within the distal common bile duct there are multiple lobular filling defects not grossly calcified but relatively dense compared to the bile, measuring up to 12 mm in diameter. These may be obstructing as foci of sludge or minimally calcified obstructing choledocholithiasis. Correlative MRCP recommended as followup. The pancreas shows some atrophy but its a nonacute and nonfocal. No pancreatic mass or focal dilatation. No evidence for pancreatitis. The adrenals are negative. There are no findings of a liver mass. 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 Spleen unremarkable. The atherosclerotic aorta is nonaneurysmal. The kidneys unobstructed and well-perfused. No mesenteric thrombus. No findings of end organ ischemia. No ascites, abscess, hematoma or acute fluid collection. There are metallic radiopacities in the left groin. No fluid collection. The bony structures nonacute. There is no diverticulitis or appendicitis. No bowel obstruction. Uterus absent. There is no adnexal lesion. The urinary bladder unremarkable. IMPRESSION: 1. Intra and extrahepatic bile duct dilatation with gallbladder distention, filling defects in the dilated distal common bile duct are either minimally calcified stones or obstructing sludge ball aggregates, correlative MRCP recommended as further evaluation. 2. The nonfocal pancreas appeared nonacute. 3. No bowel or urinary tract obstruction, no other significant finding. Dictated by: Dictated on workstation # [id number]
[2020-12-31 07:25] LABS: CLARITY,URINE CLEAR; COLOR,URINE YELLOW; GLUCOSE, URINE (UA) NEGATIVE (NEGATIVE); KETONES,URINE 1+ (NEGATIVE); LEUKOCYTE ESTERASE ,URINE NEGATIVE (NEGATIVE); NITRITE,URINE NEGATIVE (NEGATIVE); PH,URINE 6.5 (5-9); PROTEIN,URINE NEGATIVE (NEGATIVE)
[2020-12-31 07:37] LABS: BACTERIA,URINE NEGATIVE /HPF; BILIRUBIN,URINE 1+ (NEGATIVE); SQUAMOUS EPITHELIAL CELL,UR RARE /HPF
[2020-12-31] MEDS ORDERED: PIPERACILLIN SODIUM/TAZOBACTAM 4.5 GM in NS (IVPB) 100 ML IV ONE (08:00)
[2020-12-31] MEDS ORDERED: LACTATED RINGERS 1,000 ML IV ONE (08:00)
--- OUTSIDE RECORDS SUMMARY | 2020-12-31 13:57 | XMS REPORT | Clinical Summary ---
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 Active glucosamine HCl 1,500 mg Take one 0 0 0 4/08/200 Tab tablet by 9 mouth daily Active psyllium (METAMUCIL) 0.52 Take one 0 0 04/08/200 gram capsule tablet by 9 mouth daily Active levothyroxine Take one 0 0 04/08/200 (LEVOTHROID) 50 MCG tablet by 9 tablet mouth daily Active alendronate (FOSAMAX) 70 Take as 0 0 0 4/08/200 MG tablet directed 9 Active aspirin (ASPIR-81) 81 MG Take one 0 0 0 4/08/200 EC tablet tablet by 9 mouth daily Active Problems Not on file Family History Relation Name Status Comments Father Cause of was CVA at age 78. (Age 77) Social History Date Tobacco Use Types Packs/Day Years Used Never Assessed Sex Assigned at Date Recorded Not on file Last Filed Vital Signs Reading Time Taken Comments Vital Sign 104/80 08/27/2008 8:16 AM CDT Blood Pressure 72 08/27/2008 8:16 AM CDT Pulse - - Temperature - - Respiratory Rate - - Oxygen Saturation - - Inhaled Oxygen Concentration 84.9 kg (187 lb 3.2 oz) 08/27/2008 8:16 AM CDT obese Weight 165.1 cm (5' 5") 08/27/2008 8:16 AM CDT Height 31.15 08/27/2008 8:16 AM CDT Body Mass Index Plan of Treatment Not on file Results Not on filefrom Last 3 Months
[2020-12-31] MEDS ORDERED: ONDANSETRON 4 MG/2 ML (SDV) Z0FRAN IV PRN (14:00)
[2020-12-31] MEDS ORDERED: CATHETER FLUSH 10 ML SYR IV PRN (14:00)
[2020-12-31] MEDS ORDERED: morphine INJ 4 MG/ML 1 ML (VIAL/SYRINGE) IV PRN (14:00)
[2020-12-31] MEDS ORDERED: D5 NS 1000 ML IV SOLUTION 1,000 ML IV SCH (14:00)
[2020-12-31 21:20] VITALS: BP 203/92
[2020-12-31] MEDS: LACTATED RINGERS 1,000 ML IV SCH (22:10)
--- NOTE | 2020-12-31 22:21 | HISTORY AND PHYSICAL ---
DATE OF SERVICE: ATTENDING PRIMARY CARE PHYSICIAN: Dr. Shara Lowe. HISTORY OF PRESENT ILLNESS: The patient is an 80-year-old female, who presented to the Emergency Department with right upper abdominal quadrant pain starting early in the morning. She also did report radiation of pain towards the right flank. She states that she had a similar episode in August of this year and cholelithiasis was identified at that time and it was recommended that she proceed with cholecystectomy. She also reported nausea and vomiting as well. No hematemesis, no coffee ground emesis. Workup revealed elevated total bilirubin 1.7. A CT scan was also performed, which did show ductal dilatation as well as a filling defect in the distal common bile duct, likely consistent with choledocholithiasis. She was then transferred to [facility] for ERCP and papillotomy. PAST MEDICAL HISTORY: Hypercholesterolemia, gastroesophageal reflux disease, cholelithiasis and choledocholithiasis, varicose veins. PAST SURGICAL HISTORY: Lower extremity vein stripping, hysterectomy, tonsillectomy. ALLERGIES: No known drug allergies. MEDICATIONS: Aspirin 81 mg daily, gemfibrozil 600 mg b.i.d., levothyroxine 50 mcg daily, Protonix 40 mg daily. SOCIAL HISTORY: Negative smoke, negative alcohol. FAMILY HISTORY: Noncontributory. VITAL SIGNS: Temperature 37.0, blood pressure 155/64, pulse 79, respirations 18, pulse ox 95% on room air. REVIEW OF SYSTEMS: Well-nourished female currently in no acute distress. She is not experiencing any shortness of breath or difficulty breathing. No chest pain, palpitations or diaphoresis. Mild nausea, no vomiting. No known red blood per rectum, no dark tarry stools. No fever or chills. No recent inadvertent weight loss. All other review of systems negative. PHYSICAL EXAMINATION: CHEST: Clear. Good breath sounds bilaterally. HEART: Regular, no murmurs. EXTREMITIES: No lower extremity edema, negative Homans sign. HEENT: No scleral icterus. NECK: No cervical lymphadenopathy. ABDOMEN: Soft, nondistended. There is pain in the right upper abdominal quadrant. No peritoneal signs. SKIN: Warm, dry. LABORATORY DATA: WBC 4.0, hemoglobin 13.5, hematocrit 42, platelets 147. BUN 9, creatinine 0.85. Total bilirubin 1.7, AST 293, ALT 144, alkaline phosphatase 423, lipase 44. ASSESSMENT AND PLAN: An 80-year-old female with cholelithiasis and choledocholithiasis, status post ERCP and papillotomy. We will continue with bowel rest with a clear liquid diet and monitor her laboratory work. Once her liver function enzymes trend downward, and she continues to be stable, we will then proceed with a laparoscopic cholecystectomy on this admission. Job ID: [id number] DocumentID: [id number] Dictated Date: 12/31/2020 21:56:13 Hematology Technician Date: 12/31/2020 22:21:05 Dictated By: ADRIANA BARAJAS MD [facility]
[2020-12-31] MEDS: ENALAPRILAT 2.5 MG/2 ML (VASOTEC) VIAL IV PRN (22:25)
[2021-01-01] VITALS (8 sets, daily range): BP systolic 99–146; BP diastolic 57–68
[2021-01-01] MEDS ORDERED: ENALAPRIL 5 MG (VASOTEC) TAB PO SCH
[2021-01-01] MEDS: HYDROcodone/APAP 5 MG/325 MG (LORTAB) TAB PO PRN (01:20)
[2021-01-01 05:41] LABS: BASOPHILS % (AUTO) 0 % (0-10); EOSINOPHILS % (AUTO) 0 % (0-10)
[2021-01-01 05:43] LABS: HEMATOCRIT 38 % (35-52); HEMOGLOBIN 12.2 g/dL (11.5-16.0); LYMPHOCYTES # (AUTO) 0.4 10^3/uL (1.0-4.0); LYMPHOCYTES % (AUTO) 7 % (12-44); MEAN CORPUSCULAR HEMOGLOBIN 28 pg (25-34); MEAN CORPUSCULAR HGB CONC 32 g/dL (32-36); MEAN CORPUSCULAR VOLUME 88 fL (80-99); MONOCYTES # (AUTO) 0.4 10^3/uL (0.0-1.0); MONOCYTES % (AUTO) 8 % (0-12); NEUTROPHILS # (AUTO) 4.4 10^3/uL (1.8-7.8); NEUTROPHILS % (AUTO) 85 % (42-75); PLATELET COUNT 134 10^3/uL (130-400); WHITE BLOOD COUNT 5.2 10^3/uL (4.3-11.0)
[2021-01-01 06:12] LABS: ALBUMIN 3.2 GM/DL (3.2-4.5); BILIRUBIN,TOTAL 3.7 MG/DL (0.1-1.0); CALCIUM 8.3 MG/DL (8.5-10.1); CREATININE SERUM 0.74 MG/DL (0.60-1.30); POTASSIUM 3.7 MMOL/L (3.6-5.0); TOTAL PROTEIN 5.6 GM/DL (6.4-8.2)
[2021-01-01 06:52] LABS: BAND NEUTROPHILS 1 %; LYMPHOCYTES % (MANUAL) 12 %; MONOCYTES % (MANUAL) 5 %; NEUTROPHILS % (MANUAL) 82 %
[2021-01-01] MEDS ORDERED: PRAV40TA2 PO (07:41)
[2021-01-01] MEDS ORDERED: FAMO20TA5 PO (07:41)
[2021-01-01] MEDS ORDERED: BRIM5DRO2 OU (07:41)
[2021-01-01] MEDS ORDERED: RT-ALBUTEROL SULF 2.5 MG/3 ML PRE-MIX VIAL INH PRN (11:30)
--- NOTE | 2021-01-01 11:44 | Progress Note ---
Subjective Date Seen by a Provider: Jan 01, 2021 Time Seen by a Provider: 11:00 Subjective/Events-last exam Patient seen with Dr. Jones. Patient reports doing well. Denies any abdominal pain, nausea, vomiting. Tolerating clear liquid diet. Focused Exam Lactate Level 12/31/20 06:20: Lactic Acid Level 0.77 Objective Exam Vital Signs Date Time Temp Pulse Resp B/P (MAP) Pulse Ox O2 Delivery O2 Flow Rate FiO2 01/01/21 11:15 36.0 55 95 21 01/01/21 08:00 95 Room Air 01/01/21 07:48 36.0 55 16 126/58 (80) 95 Room Air 01/01/21 04:00 36.3 54 20 145/68 (93) 95 Room Air 01/01/21 00:00 36.8 61 20 121/59 (79) 94 Room Air 12/31/20 21:20 36.7 60 18 203/92 (129) 94 Room Air 12/31/20 21:20 Room Air 12/31/20 12:02 79 18 155/64 97 Room Air I & O 01/01/21 07:00 Intake Total 1340 ml Output Total 400 ml Balance 940 ml Capillary Refill : Less Than 3 Seconds General Appearance: No Apparent Distress, WD/WN Neck: Normal Inspection, Supple Respiratory: Normal Breath Sounds, No Accessory Muscle Use, No Respiratory Distress Cardiovascular: Regular Rate, Rhythm, No Edema Gastrointestinal: normal bowel sounds, non tender, soft Extremity: Normal Inspection, Normal Range of Motion Neurologic/Psychiatric: Alert, Oriented x3 Skin: Normal Color, Warm/Dry Results Lab Laboratory Tests 01/01/21 05:30: White Blood Count 5.2, Red Blood Count 4.29, Hemoglobin 12.2, Hematocrit 38, Mean Corpuscular Volume 88, Mean Corpuscular Hemoglobin 28, Mean Corpuscular Hemoglobin Concent 32, Red Cell Distribution Width 13.2, Platelet Count 134, Mean Platelet Volume 11.0, Immature Granulocyte % (Auto) 0, Neutrophils (%) (Auto) 85H, Lymphocytes (%) (Auto) 7L, Monocytes (%) (Auto) 8, Eosinophils (%) (Auto) 0, Basophils (%) (Auto) 0, Neutrophils # (Auto) 4.4, Lymphocytes # (Auto) 0.4L, Monocytes # (Auto) 0.4, Eosinophils # (Auto) 0.0, Basophils # (Auto) 0.0, Immature Granulocyte # (Auto) 0.0, Neutrophils % (Manual) 82, Lymphocytes % (Manual) 12, Monocytes % (Manual) 5, Band Neutrophils 1, Percent Immature Platelet Fraction 5.0, Sodium Level 139, Potassium Level 3.7, Chloride Level 109H, Carbon Dioxide Level 22, Anion Gap 8, Blood Urea Nitrogen 7, Creatinine 0.74, Estimat Glomerular Filtration Rate 75, BUN/Creatinine Ratio 9, Glucose Level 133H, Calcium Level 8.3L, Corrected Calcium 8.9, Total Bilirubin 3.7#H, Aspartate Amino Transf (AST/SGOT) 551H, Alanine Aminotransferase (ALT/SGPT) 371H , Alkaline Phosphatase 345H, Total Protein 5.6L, Albumin 3.2 Assessment/Plan Assessment/Plan Assess & Plan/Chief Complaint An 80-year-old female with cholelithiasis and choledocholithiasis, status post ERCP and papillotomy. VSS Total bilirubin - 3.7 AST - 551 ALT - 571 Alk Phos - 345 Continue with medical management May proceed with low fat diet Pain and nausea meds as needed Will recheck CBC and CMP and once her liver function enzymes trend downward, and she continues to be stable, we will then proceed with a laparoscopic cholecystectomy on this admission. MINESH CAMPOS SALES REPRESENTATIVE [employer] Jan 01, 2021 11:44
--- NOTE | 2021-01-01 11:48 | Consultation - Hospitalist ---
HPI History of Present Illness: HPI/Chief Complaint Pt is an 80yoCF with a PMH of HTN, HLD, and hypothyroidism who presented to the ER due to abdominal pain. She states she has known gallbladder disease and thought her symptoms were due to that. It started yesterday at 2am. She was told she needed her gallbladder out this spring but her symptoms improved and she opted not to follow up for that. In the Er she was found to have bile duct dilatation with gallbladder distention and filling defects. She was admitted to Dr Jones with a planned leave of absence to [place] for ERCP. She returned late yesterday evening. This morning she reports feeling very well. Her symptoms have resolved and she is hopeful to eat something more substantial today. Source: patient Date Seen 01/01/21 Attending Physician Mina Jones MD PCP Shara Lowe MD Referring Physician Date of Admission Dec 31, 2020 at 11:09 Home Medications & Allergies Home Medications Reviewed patient Home Medication Reconciliation performed by pharmacy medication reconciliations assistant technician and/or nursing. Patients Allergies have been reviewed. Allergies Allergies Coded Allergies No Known Drug Allergies ([id number]/15/17) Past Lpboldu-Vkuuba-Nkwmsq Hx Patient Social History Tobacco Use?: No Smoking Status: Never a Smoker Use of E-Cig and/or Vaping dev: No Substance use?: No Alcohol Use?: No Pt feels they are or have been: No Immunizations Up To Date Second COVID19 Vaccination Howard: 09/08 Tetanus Booster (TDap): Unknown Date of Pneumonia Vaccine: Feb 27, 2016 Seasonal Allergies Seasonal Allergies: No Current Status Advance Directives: No Primary Language: Northern Irish Preferred Spoken Language: Northern Irish Implanted or Applied Medical D: None Past Medical History Surgeries: Hysterectomy, Tonsillectomy High Cholesterol 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 Gastroesophageal Reflux Skin Blood Disorders: No Family Medical History Reviewed Nursing Family Hx No Pertinent Family Hx Review of Systems Constitutional: No chills, No fever EENTM: no symptoms reported Respiratory: no symptoms reported Cardiovascular: no symptoms reported Gastrointestinal: see HPI Genitourinary: no symptoms reported Musculoskeletal: no symptoms reported Skin: no symptoms reported Psychiatric/Neurological: No Symptoms Reported Physical Exam Physical Exam Vital Signs Vital Signs - First Documented 12/31/20 01/01/21 05:52 11:15 Temp 37.0 Pulse 65 Resp 20 B/P (MAP) 157/77 (103) Pulse Ox 97 O2 Delivery Room Air FiO2 21 Capillary Refill : Less Than 3 Seconds Height, Weight, BMI Height: 5'5.00" Weight: 170lbs. 0.0oz. [id number]; 23.84 BMI Method:Stated General Appearance: No Apparent Distress, WD/WN Neck: Normal Inspection, Supple Respiratory: Lungs Clear, No Accessory Muscle Use, No Respiratory Distress Cardiovascular: Regular Rate, Rhythm, No Edema, No Murmur Gastrointestinal: Normal Bowel Sounds, Non Tender, Soft; No Distended, No Guarding Extremity: Normal Capillary Refill, Non Tender, No Pedal Edema Neurologic/Psychiatric: Alert, Oriented x3, Normal Mood/Affect Skin: Normal Color, Warm/Dry Results Results/Procedures Labs Laboratory Tests 12/31/20 06:20 01/01/21 05:30 Patient resulted labs reviewed. Imaging: Reviewed Imaging Report Imaging [facility], [place] NAME: ELLI JARRETT [facility] REC#: [id number] PT STATUS: REG ER : 1940 PHYSICIAN: MARIXA GRIJALVA MD ADMIT DATE: 12/31/20/ER Signed Date of Exam:12/31/20 CT ABDOMEN/PELVIS W PROCEDURE: CT abdomen and pelvis with contrast. TECHNIQUE: Multiple contiguous axial images were obtained through the abdomen and pelvis after administration of intravenous contrast. Auto Exposure Controls were utilized during the CT exam to meet ALARA standards for radiation dose reduction. All CT scans use one or more of the following dose optimizing techniques: automated exposure control, MA and/or KvP adjustment based on patient size and exam type or iterative reconstruction. INDICATION: Right upper quadrant pain. FINDINGS: The gallbladder is distended measuring 13 cm in length with 5 cm maximal transverse dimension. There does appear to be at least one stone in its dependent portion, its wall is about 2 mm not grossly thickened and no appreciable pericholecystic edema. There is mild intra and moderate to severe extrahepatic bile duct dilatation. The extrahepatic duct measures a 15 mm maximal dimension. Within the distal common bile duct there are multiple lobular filling defects not grossly calcified but relatively dense compared to the bile, measuring up to 12 mm in diameter. These may be obstructing as foci of sludge or minimally calcified obstructing choledocholithiasis. Correlative MRCP recommended as followup. The pancreas shows some atrophy but its a nonacute and nonfocal. No pancreatic mass or focal dilatation. No evidence for pancreatitis. The adrenals are negative. There are no findings of a liver mass. 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 Spleen unremarkable. The atherosclerotic aorta is nonaneurysmal. The kidneys unobstructed and well-perfused. No mesenteric thrombus. No findings of end organ ischemia. No ascites, abscess, hematoma or acute fluid collection. There are metallic radiopacities in the left groin. No fluid collection. The bony structures nonacute. There is no diverticulitis or appendicitis. No bowel obstruction. Uterus absent. There is no adnexal lesion. The urinary bladder unremarkable. IMPRESSION: 1. Intra and extrahepatic bile duct dilatation with gallbladder distention, filling defects in the dilated distal common bile duct are either minimally calcified stones or obstructing sludge ball aggregates, correlative MRCP recommended as further evaluation. 2. The nonfocal pancreas appeared nonacute. 3. No bowel or urinary tract obstruction, no other significant finding. Dictated by: Dictated on workstation # [id number] Dict: 12/31/20 0705 Trans: 12/31/20 0819 [facility] [id number] Interpreted by: MARIA C MEDRANO Electronically signed by: MARIA C MEDRANO 12/31/20 0819 Assessment/Plan Assessment and Plan Assess & Plan/Chief Complaint Choledocholithiasis cholelithiasis transaminitis hyperbilirubinemia Management per primary Symptoms improved Advancing diet HTN HLD Hypothyroidism Continue home meds No acute needs Ok to DC home from a medical standpoint Diagnosis/Problems Diagnosis/Problems (1) Essential (primary) hypertension (2) HLD (hyperlipidemia) (3) Hypothyroidism (4) Biliary obstruction Status: Acute (5) Transaminitis Status: Acute (6) RUQ pain Status: Acute LACIE SHERIDAN MD Jan 01, 2021 11:48
[2021-01-01] MEDS: PANTOPRAZOLE 40 MG (PROTONIX) TAB PO SCH (20:24)
[2021-01-01] MEDS: GEMFIBROZIL 600 MG (LOPID) TAB PO SCH (20:24)
[2021-01-02] MEDS: LACTATED RINGERS 1,000 ML IV SCH ×2 (01:12→22:05)
[2021-01-02 03:10] VITALS: BP 118/70
[2021-01-02 05:15] LABS: MEAN CORPUSCULAR VOLUME 91 fL (80-99)
[2021-01-02 05:17] LABS: BASOPHILS % (AUTO) 1 % (0-10); EOSINOPHILS # (AUTO) 0.1 10^3/uL (0.0-0.3); EOSINOPHILS % (AUTO) 3 % (0-10); HEMATOCRIT 37 % (35-52); HEMOGLOBIN 11.8 g/dL (11.5-16.0); LYMPHOCYTES # (AUTO) 0.8 10^3/uL (1.0-4.0); LYMPHOCYTES % (AUTO) 22 % (12-44); MEAN CORPUSCULAR HEMOGLOBIN 29 pg (25-34); MEAN CORPUSCULAR HGB CONC 32 g/dL (32-36); MEAN PLATELET VOLUME 10.8 fL (9.0-12.2); MONOCYTES # (AUTO) 0.4 10^3/uL (0.0-1.0); MONOCYTES % (AUTO) 11 % (0-12); NEUTROPHILS # (AUTO) 2.1 10^3/uL (1.8-7.8); NEUTROPHILS % (AUTO) 62 % (42-75); PLATELET COUNT 132 10^3/uL (130-400); WHITE BLOOD COUNT 3.4 10^3/uL (4.3-11.0)
[2021-01-02 05:26] LABS: ALBUMIN 3.2 GM/DL (3.2-4.5); POTASSIUM 3.7 MMOL/L (3.6-5.0)
[2021-01-02 05:27] LABS: CALCIUM 8.2 MG/DL (8.5-10.1)
[2021-01-02 05:29] LABS: TOTAL PROTEIN 5.5 GM/DL (6.4-8.2)
[2021-01-02 05:30] LABS: BILIRUBIN,TOTAL 0.9 MG/DL (0.1-1.0)
[2021-01-02 05:32] LABS: CREATININE SERUM 0.77 MG/DL (0.60-1.30)
[2021-01-02] MEDS: LEVOTHYROXINE 50 MCG (LEVOTHROID) TAB PO SCH (06:15)
[2021-01-02 08:00] VITALS: BP 125/69
[2021-01-02] MEDS: GEMFIBROZIL 600 MG (LOPID) TAB PO SCH ×2 (09:06→20:37)
[2021-01-02] MEDS: FAMOTIDINE 20 MG (PEPCID) TABLET PO SCH (09:06)
--- NOTE | 2021-01-02 10:44 | Progress Note ---
Subjective Date Seen by a Provider: Jan 02, 2021 Time Seen by a Provider: 10:30 Subjective/Events-last exam Patient seen with Dr. Jones. Patient reports doing well with only minor discomfort and no significant pain. Does report more discomfort and bloating with eating, but no N/V. Ambulating. No fever/chills. Focused Exam Lactate Level 12/31/20 06:20: Lactic Acid Level 0.77 Objective Exam Vital Signs Date Time Temp Pulse Resp B/P (MAP) Pulse Ox O2 Delivery O2 Flow Rate FiO2 01/02/21 08:00 Room Air 01/02/21 08:00 36.3 60 18 125/69 (87) 95 Room Air 01/02/21 03:10 36.7 53 18 118/70 (86) 92 01/01/21 23:10 37.2 52 16 99/62 (74) 93 01/01/21 20:25 96 Room Air 01/01/21 20:00 36.1 56 16 103/57 (72) 94 01/01/21 16:00 36.0 58 16 107/68 (81) 95 01/01/21 12:00 36.6 53 16 146/67 (93) 95 Room Air 01/01/21 11:15 36.0 55 95 21 I & O 01/02/21 07:00 Intake Total 2450 ml Output Total 1500 ml Balance 950 ml Capillary Refill : Less Than 3 Seconds General Appearance: No Apparent Distress, WD/WN Neck: Normal Inspection, Supple Respiratory: Normal Breath Sounds, No Accessory Muscle Use, No Respiratory Distress Cardiovascular: Regular Rate, Rhythm, No Edema Gastrointestinal: normal bowel sounds, non tender, soft Extremity: Normal Inspection, Non Tender Neurologic/Psychiatric: Alert, Oriented x3 Skin: Normal Color, Warm/Dry Results Lab Laboratory Tests 01/02/21 05:05: White Blood Count 3.4L, Red Blood Count 4.12, Hemoglobin 11.8, Hematocrit 37, Mean Corpuscular Volume 91, Mean Corpuscular Hemoglobin 29, Mean Corpuscular Hemoglobin Concent 32, Red Cell Distribution Width 13.4, Platelet Count 132, Mean Platelet Volume 10.8, Immature Granulocyte % (Auto) 1, Neutrophils (%) (Auto) 62, Lymphocytes (%) (Auto) 22, Monocytes (%) (Auto) 11, Eosinophils (%) (Auto) 3, Basophils (%) (Auto) 1, Neutrophils # (Auto) 2.1, Lymphocytes # (Auto) 0.8L, Monocytes # (Auto) 0.4, Eosinophils # (Auto) 0.1, Basophils # (Auto) 0.0, Immature Granulocyte # (Auto) 0.0, Percent Immature Platelet Fraction 5.1, Sodium Level 143, Potassium Level 3.7, Chloride Level 111H, Carbon Dioxide Level 22, Anion Gap 10, Blood Urea Nitrogen 11, Creatinine 0.77, Estimat Glomerular Filtration Rate 72, BUN/Creatinine Ratio 14, Glucose Level 98, Calcium Level 8.2L, Corrected Calcium 8.8, Total Bilirubin 0.9#, Aspartate Amino Transf (AST/SGOT) 204H, Alanine Aminotransferase (ALT/SGPT) 253H, Alkaline Phosphatase 268H, Total Protein 5.5L, Albumin 3.2 Microbiology 12/31/20 Blood Culture - Preliminary, Resulted No growth Assessment/Plan Assessment/Plan Assess & Plan/Chief Complaint An 80-year-old female with cholelithiasis and choledocholithiasis, status post ERCP and papillotomy. VSS Total bilirubin - 0.9 AST - 204 ALT - 253 Alk Phos - 268 Continue with medical management Continue with low fat diet Pain and nausea meds as needed Will recheck CBC and CMP and once her liver function enzymes trend downward, and she continues to be stable, we will then proceed with a laparoscopic cholecystectomy on this admission. MINESH CAMPOS SUPERVISOR [employer] Jan 02, 2021 10:44
[2021-01-02 11:34] VITALS: BP 148/73
[2021-01-02 16:20] VITALS: BP 165/70
[2021-01-02 19:32] VITALS: BP 155/68
[2021-01-02] MEDS: PANTOPRAZOLE 40 MG (PROTONIX) TAB PO SCH (20:37)
[2021-01-03] VITALS (8 sets, daily range): BP systolic 132–192; BP diastolic 58–89
[2021-01-03 05:46] LABS: BASOPHILS % (AUTO) 1 % (0-10); EOSINOPHILS # (AUTO) 0.2 10^3/uL (0.0-0.3); EOSINOPHILS % (AUTO) 5 % (0-10); HEMATOCRIT 40 % (35-52); HEMOGLOBIN 12.5 g/dL (11.5-16.0); LYMPHOCYTES # (AUTO) 0.7 10^3/uL (1.0-4.0); LYMPHOCYTES % (AUTO) 25 % (12-44); MEAN CORPUSCULAR HEMOGLOBIN 29 pg (25-34); MEAN CORPUSCULAR HGB CONC 32 g/dL (32-36); MEAN CORPUSCULAR VOLUME 91 fL (80-99); MEAN PLATELET VOLUME 11.1 fL (9.0-12.2); MONOCYTES # (AUTO) 0.4 10^3/uL (0.0-1.0); MONOCYTES % (AUTO) 14 % (0-12); NEUTROPHILS # (AUTO) 1.6 10^3/uL (1.8-7.8); NEUTROPHILS % (AUTO) 54 % (42-75); PLATELET COUNT 154 10^3/uL (130-400)
[2021-01-03] MEDS: LEVOTHYROXINE 50 MCG (LEVOTHROID) TAB PO SCH (05:47)
[2021-01-03 06:06] LABS: ALBUMIN 3.2 GM/DL (3.2-4.5)
[2021-01-03 06:08] LABS: CALCIUM 8.7 MG/DL (8.5-10.1)
[2021-01-03 06:09] LABS: TOTAL PROTEIN 5.7 GM/DL (6.4-8.2)
[2021-01-03 06:11] LABS: BILIRUBIN,TOTAL 0.8 MG/DL (0.1-1.0)
[2021-01-03 06:13] LABS: CREATININE SERUM 0.74 MG/DL (0.60-1.30)
[2021-01-03] MEDS: FAMOTIDINE 20 MG (PEPCID) TABLET PO SCH (08:05)
[2021-01-03] MEDS: GEMFIBROZIL 600 MG (LOPID) TAB PO SCH ×2 (08:05→20:08)
[2021-01-03] MEDS ORDERED: CALC-50 PO (09:01)
[2021-01-03] MEDS ORDERED: PRAV40TA2 PO (09:04)
--- NOTE | 2021-01-03 14:52 | Progress Note ---
Subjective Date Seen by a Provider: Jan 03, 2021 Time Seen by a Provider: 16:00 Subjective/Events-last exam doing well. no complaints. no fever/chills. labs trending to normal Objective Exam Vital Signs Date Time Temp Pulse Resp B/P (MAP) Pulse Ox O2 Delivery O2 Flow Rate FiO2 01/03/21 12:44 166/78 (107) 01/03/21 11:43 36.6 52 18 94 Room Air 01/03/21 08:02 93 Room Air 01/03/21 07:24 172/82 (112) 01/03/21 07:12 36.5 46 18 173/89 (117) 93 Room Air 01/03/21 04:17 36.6 45 17 162/75 (104) 97 Room Air 01/03/21 00:00 36.9 50 17 143/71 (95) 98 Room Air 01/02/21 20:40 Room Air 01/02/21 19:32 36.3 57 18 155/68 (97) 92 Room Air 01/02/21 19:16 94 Room Air 01/02/21 16:20 35.8 51 16 165/70 (101) 96 Room Air I & O 01/03/21 07:00 Intake Total 1050 ml Balance 1050 ml Capillary Refill : Less Than 3 Seconds General Appearance: No Apparent Distress HEENT: PERRL/EOMI Neck: Full Range of Motion Respiratory: Chest Non Tender Cardiovascular: Regular Rate, Rhythm Gastrointestinal: normal bowel sounds, soft Extremity: Normal Capillary Refill Neurologic/Psychiatric: Alert, Oriented x3 Skin: Normal Color Lymphatic: No Adenopathy Results Lab Laboratory Tests 01/03/21 05:20: White Blood Count 3.0L, Red Blood Count 4.38, Hemoglobin 12.5, Hematocrit 40, Mean Corpuscular Volume 91, Mean Corpuscular Hemoglobin 29, Mean Corpuscular Hemoglobin Concent 32, Red Cell Distribution Width 13.2, Platelet Count 154, Mean Platelet Volume 11.1, Immature Granulocyte % (Auto) 1, Neutrophils (%) (Auto) 54, Lymphocytes (%) (Auto) 25, Monocytes (%) (Auto) 14H, Eosinophils (%) (Auto) 5, Basophils (%) (Auto) 1, Neutrophils # (Auto) 1.6L, Lymphocytes # (Auto) 0.7L, Monocytes # (Auto) 0.4, Eosinophils # (Auto) 0.2, Basophils # (Auto) 0.0, Immature Granulocyte # (Auto) 0.0, Sodium Level 141, Potassium Level 4.0, Chloride Level 111H, Carbon Dioxide Level 23, Anion Gap 7, Blood Urea Nitrogen 9, Creatinine 0.74, Estimat Glomerular Filtration Rate 75, BUN/Creatinine Ratio 12, Glucose Level 92, Calcium Level 8.7, Corrected Calcium 9.3, Total Bilirubin 0.8, Aspartate Amino Transf (AST/SGOT) 86H, Alanine Aminotransferase (ALT/SGPT) 170H, Alkaline Phosphatase 243H, Total Protein 5.7L, Albumin 3.2 Microbiology 12/31/20 Blood Culture - Preliminary, Resulted No growth Assessment/Plan Assessment/Plan Assess & Plan/Chief Complaint cholelithiasis and choledocholithiasis s/p ERCP and stent. schedule laparoscopic cholecystectomy ADRIANA BARAJAS MD Jan 03, 2021 14:52
--- NOTE | 2021-01-03 18:29 | Progress Note-Pre Operative ---
Pre-Operative Progress Note H&P Reviewed The H&P was reviewed, patient examined and no changes noted. Date Seen by Provider: Jan 03, 2021 Time Seen by Provider: 18:00 Date H&P Reviewed: Jan 03, 2021 Time H&P Reviewed: 18:00 Pre-Operative Diagnosis: cholelithiasis and choledocholithiasis ADRIANA BARAJAS MD Jan 03, 2021 18:29
[2021-01-03] MEDS ORDERED: hydrALAZINE (APRESOLINE) 25 MG TAB PO SCH (18:30)
[2021-01-03] MEDS ORDERED: hydrALAZINE (APRESOLINE) 25 MG TAB PO PRN (18:30)
[2021-01-03] MEDS ORDERED: hydrALAZINE (APRESOLINE) 25 MG TAB ONE (18:33)
--- NOTE | 2021-01-03 19:23 | Progress Note ---
Subjective Date Seen by a Provider: Jan 03, 2021 Time Seen by a Provider: 18:40 Subjective/Events-last exam Patient seen with Dr. Jones. Patient reports doing well. Denies any abdominal pain, N/V, Fever/chills. Tolerating diet. Ambulating to bathroom. Objective Exam Vital Signs Date Time Temp Pulse Resp B/P (MAP) Pulse Ox O2 Delivery O2 Flow Rate FiO2 01/03/21 16:00 36.4 52 18 180/80 (113) 96 Room Air 01/03/21 12:44 166/78 (107) 01/03/21 11:43 36.6 52 18 94 Room Air 01/03/21 08:02 93 Room Air 01/03/21 07:24 172/82 (112) 01/03/21 07:12 36.5 46 18 173/89 (117) 93 Room Air 01/03/21 04:17 36.6 45 17 162/75 (104) 97 Room Air 01/03/21 00:00 36.9 50 17 143/71 (95) 98 Room Air 01/02/21 20:40 Room Air 01/02/21 19:32 36.3 57 18 155/68 (97) 92 Room Air I & O 01/03/21 07:00 Intake Total 1050 ml Balance 1050 ml Capillary Refill : Less Than 3 Seconds General Appearance: No Apparent Distress, WD/WN Neck: Normal Inspection, Supple Respiratory: Normal Breath Sounds, No Accessory Muscle Use, No Respiratory Distress Cardiovascular: Regular Rate, Rhythm, No Edema Gastrointestinal: normal bowel sounds, non tender, soft Extremity: Normal Inspection, Normal Range of Motion Neurologic/Psychiatric: Alert, Oriented x3 Skin: Normal Color, Warm/Dry Results Lab Laboratory Tests 01/03/21 05:20: White Blood Count 3.0L, Red Blood Count 4.38, Hemoglobin 12.5, Hematocrit 40, Mean Corpuscular Volume 91, Mean Corpuscular Hemoglobin 29, Mean Corpuscular Hemoglobin Concent 32, Red Cell Distribution Width 13.2, Platelet Count 154, Mean Platelet Volume 11.1, Immature Granulocyte % (Auto) 1, Neutrophils (%) ( Auto) 54, Lymphocytes (%) (Auto) 25, Monocytes (%) (Auto) 14H, Eosinophils (%) (Auto) 5, Basophils (%) (Auto) 1, Neutrophils # (Auto) 1.6L, Lymphocytes # (Auto) 0.7L, Monocytes # (Auto) 0.4, Eosinophils # (Auto) 0.2, Basophils # (Auto) 0.0, Immature Granulocyte # (Auto) 0.0, Sodium Level 141, Potassium Level 4.0, Chloride Level 111H, Carbon Dioxide Level 23, Anion Gap 7, Blood Urea Nitrogen 9, Creatinine 0.74, Estimat Glomerular Filtration Rate 75, BUN/Creatinine Ratio 12, Glucose Level 92, Calcium Level 8.7, Corrected Calcium 9.3, Total Bilirubin 0.8, Aspartate Amino Transf (AST/SGOT) 86H, Alanine Aminotransferase (ALT/SGPT) 170H, Alkaline Phosphatase 243H, Total Protein 5.7L, Albumin 3.2 Microbiology 12/31/20 Blood Culture - Preliminary, Resulted No growth Assessment/Plan Assessment/Plan Assess & Plan/Chief Complaint An 80-year-old female with cholelithiasis and choledocholithiasis, status post ERCP and papillotomy. VSS Total bilirubin - 0.8 Liver enzymes trending down Continue with medical management Continue with low fat diet Pain and nausea meds as needed NPO at midnight Will proceed with laparoscopic cholecystectomy tomorrow MINESH CAMPOS APRN Jan 03, 2021 19:23
[2021-01-03] MEDS: PANTOPRAZOLE 40 MG (PROTONIX) TAB PO SCH (20:08)
[2021-01-04] VITALS (11 sets, daily range): BP systolic 106–197; BP diastolic 58–90
[2021-01-04] MEDS: LEVOTHYROXINE 50 MCG (LEVOTHROID) TAB PO SCH (05:41)
[2021-01-04 05:54] LABS: BASOPHILS # (AUTO) 0.1 10^3/uL (0.0-0.1); BASOPHILS % (AUTO) 1 % (0-10); EOSINOPHILS # (AUTO) 0.2 10^3/uL (0.0-0.3); EOSINOPHILS % (AUTO) 4 % (0-10); HEMATOCRIT 43 % (35-52); HEMOGLOBIN 14.2 g/dL (11.5-16.0); LYMPHOCYTES # (AUTO) 0.8 10^3/uL (1.0-4.0); LYMPHOCYTES % (AUTO) 19 % (12-44); MEAN CORPUSCULAR HEMOGLOBIN 29 pg (25-34); MEAN CORPUSCULAR HGB CONC 33 g/dL (32-36); MEAN CORPUSCULAR VOLUME 88 fL (80-99); MEAN PLATELET VOLUME 10.4 fL (9.0-12.2); MONOCYTES # (AUTO) 0.4 10^3/uL (0.0-1.0); MONOCYTES % (AUTO) 10 % (0-12); NEUTROPHILS # (AUTO) 2.7 10^3/uL (1.8-7.8); NEUTROPHILS % (AUTO) 63 % (42-75); PLATELET COUNT 186 10^3/uL (130-400); WHITE BLOOD COUNT 4.2 10^3/uL (4.3-11.0)
[2021-01-04 06:11] LABS: ALBUMIN 3.5 GM/DL (3.2-4.5); POTASSIUM 3.8 MMOL/L (3.6-5.0)
[2021-01-04 06:12] LABS: CALCIUM 9.3 MG/DL (8.5-10.1)
[2021-01-04 06:14] LABS: TOTAL PROTEIN 6.3 GM/DL (6.4-8.2)
[2021-01-04 06:15] LABS: BILIRUBIN,TOTAL 0.8 MG/DL (0.1-1.0)
[2021-01-04 06:17] LABS: CREATININE SERUM 0.79 MG/DL (0.60-1.30)
[2021-01-04] MEDS: GEMFIBROZIL 600 MG (LOPID) TAB PO SCH ×2 (08:02→19:57)
[2021-01-04] MEDS: FAMOTIDINE 20 MG (PEPCID) TABLET PO SCH (08:03)
[2021-01-04] MEDS ORDERED: proPOfol 200 MG/20 ML (DIPRIVAN) VIAL IV ONE (09:20)
[2021-01-04] MEDS ORDERED: ONDANSETRON 4 MG/2 ML (SDV) Z0FRAN ONE (09:20)
[2021-01-04] MEDS ORDERED: LIDOCAINE PF 2% 5 ML (XYLOCAINE) VIAL ONE (09:20)
[2021-01-04] MEDS ORDERED: fentaNYL INJ 100 MCG/2 ML AMP ONE (09:20)
[2021-01-04] MEDS ORDERED: ROCURONIUM 10 MG/ML 5 ML SYRINGE IV ONE (09:20)
[2021-01-04] MEDS ORDERED: LACTATED RINGERS 1,000 ML IV PRN (11:00)
[2021-01-04] MEDS ORDERED: ceFAZolin 2 GM IV Premixed 50 ML IV ONE (12:15)
[2021-01-04] MEDS ORDERED: ceFAZolin 2 GM IV Premixed 50 ML IV NR (12:23)
[2021-01-04] MEDS ORDERED: SEVOFLURANE (ULTANE) 15 ML INHAL SOLN ONE (12:26)
--- NOTE | 2021-01-04 12:37 | Progress Note-Post Operative ---
Post-Operative Progess Note Surgeon (s)/Decorating Instructor (s) Surgeon ADRIANA BARAJAS MD Decorating Instructor: liz lepe DOWEL STICKER OPERATOR Pre-Operative Diagnosis cholelithiasis and choledocholithiasis Post-Operative Diagnosis same Procedure & Operative Findings Date of Procedure 01/04/21 Procedure Performed/Findings laparoscopic cholecystectomy Anesthesia Type get Estimated Blood Loss Estimated blood loss (mL): minimal Specimens/Packing Specimens Removed gallbladder ADRIANA BARAJAS MD Jan 04, 2021 12:37
[2021-01-04] MEDS ORDERED: ACHD5005 PO (12:38)
--- NOTE | 2021-01-04 12:39 | Discharge Inst-Surgical ---
D/C Lap Instructions-KARL New, Converted, or Re-Newed RX: RX on Chart Follow Up Appt in 2 weeks Activity as tolerated No driving for 24 hours No [address] while on pain medications Incentive Spirometry use every 2 hours while awake Regular Diet Symptoms to Report: Fever over 101 degree F, Nausea/Vomiting Infection Signs and Symptoms to report: Increased redness, Foul odor of wound, Increased drainage Bathing instructions: May shower Operative Area Clean/Dry; Keep incision clean/dry If any problems/questions: Contact your physician or go to Emergency Room ADRIANA BARAJAS MD Jan 04, 2021 12:38
[2021-01-04] MEDS ORDERED: GLYCOPYRROLATE 0.2 MG/ML (ROBINUL) 2 ML VIAL ONE (12:40)
[2021-01-04] MEDS ORDERED: NEOSTIGMINE 3 MG/3 ML VIAL ONE (12:40)
[2021-01-04] MEDS ORDERED: NS IV 1000 ML 1,000 ML IV SCH (13:30)
--- NOTE | 2021-01-04 14:08 | OPERATIVE REPORT ---
DATE OF SERVICE: 01/04/2021 ATTENDING PRIMARY CARE PHYSICIAN: Dr. Shara Lowe. PREOPERATIVE DIAGNOSIS: Cholelithiasis with history of choledocholithiasis. POSTOPERATIVE DIAGNOSES: Cholelithiasis with history of choledocholithiasis. PROCEDURE: Laparoscopic cholecystectomy. SURGEON: Adriana Barajas MD. CHEMISTS: Jakub Kent APRN. ANESTHESIA: General endotracheal. ESTIMATED BLOOD LOSS: Minimal. FINDINGS: Dilated gallbladder and ductal system. DISPOSITION: The patient tolerated the procedure well. INDICATIONS: The patient is an 80-year-old female, who presented to the Emergency Department with right upper abdominal quadrant pain with radiation towards the right flank. She had reported a similar episode August of this year and cholelithiasis identified at the time and it was recommended to proceed with cholecystectomy. On this occasion, she also reported nausea and vomiting. Workup did reveal an elevated total bilirubin as well as a CT scan, which did show ductal dilatation and a filling defect at the distal common bile duct. She was then transferred to [facility] gastroenterology where an ERCP, papillotomy and stent was placed. Since the ERCP, she has done well; however, she did have elevation of liver function enzymes, which over time normalized. We will now proceed with a laparoscopic cholecystectomy. DESCRIPTION OF PROCEDURE: The patient was brought to the operating room, laid supine on the table. After adequate IV pain and sedative medications and general endotracheal intubation, the abdomen was prepped and draped in standard surgical fashion. A 0.5% Marcaine with epinephrine was used to anesthetize the overlying skin left upper abdominal quadrant and a transverse skin incision made using 15 blade. An 0 silk suture was applied to the medial aspect incision for retraction and a Veress needle inserted with a low opening pressure of 0 mmHg. The abdomen was then insufflated to 15 mmHg pressure. The Veress needle removed, and a 5 mm XL trocar placed followed by a 5 mm 45-degree angle laparoscope visualizing the peritoneal cavity. A 4-quadrant abdominal exploration was performed. There was a distended gallbladder and upon further exploration dilated ductal system. Under direct visualization, we then proceeded to place a supraumbilical 10 mm port after the skin and peritoneal lining were anesthetized using 0.5% Marcaine with epinephrine and a transverse skin incision made using 15 blade. In a similar manner, a right upper abdominal quadrant 5 mm port was placed. The patient was then placed in reverse Trendelenburg position as well as plane right side up, left side down. The fundus of the gallbladder was then retracted anteriorly and superiorly. The hepatoduodenal ligament was then dissected using electrocautery as well as blunt dissection and hook instrument as well as a [place] dissector and the end. The entire critical view of safety was identified including the triangle of Calot as well as the cystic duct and artery as the only two structures going into the gallbladder as well as the cystic plate behind the proximal gallbladder. A timeout was then taken and the cystic duct and artery were then clipped proximally, distally and cut with EndoShears. The cystic duct were clipped 12 mm with clips. The gallbladder was then dissected off the liver bed using electrocautery and hook instrument with visualization of good hemostasis as well as no leaking ducts of Luschka. The gallbladder was removed through the 10 mm port site using an EndoCatch bag. The fascia and peritoneum to the 10 mm port site were then closed under direct visualization using a Archie-Mundo device and 0 Vicryl suture. The abdomen was desufflated and remaining ports removed. All skin incisions were closed using 4-0 Monocryl running subcuticular sutures. Wounds were then cleaned and covered with Dermabond. The patient tolerated the procedure well. We will start IV normal pain medication as well as a clear liquid diet. When she is tolerating clears, has good pain control with oral pain medications, ambulating well, we will discharge her home. She will be instructed to do no heavy lifting or exertion for the next two weeks. Job ID: [id number] DocumentID: [id number] Dictated Date: 01/04/2021 12:44:34 Roll Forming Machine Set Up Operator Date: 01/04/2021 14:07:36 Dictated By: ADRIANA BARAJAS MD
--- NOTE | 2021-01-04 14:56 | Anesthesia-General Post-Op ---
General Patient Condition Mental Status/LOC: Same as Preop Cardiovascular: Satisfactory Nausea/Vomiting: Absent Respiratory: Satisfactory Pain: Controlled Complications: Absent Post Op Complications Complications None Follow Up Care/Instructions Patient Instructions None needed. Anesthesia/Patient Condition Patient Condition Patient is doing well, no complaints, stable vital signs, no apparent adverse anesthesia problems. No complications reported per nursing. COURTNEY TUCKER CRNA Jan 04, 2021 14:56
[2021-01-04] MEDS: ENALAPRILAT 2.5 MG/2 ML (VASOTEC) VIAL IV PRN (15:15)
[2021-01-04] MEDS: HYDROcodone/APAP 5 MG/325 MG (LORTAB) TAB PO PRN ×2 (15:15→20:00)
[2021-01-04] MEDS: PANTOPRAZOLE 40 MG (PROTONIX) TAB PO SCH (19:57)
[2021-01-05] VITALS: BP 119/67
[2021-01-05 04:50] VITALS: BP 115/70
[2021-01-05] MEDS: LEVOTHYROXINE 50 MCG (LEVOTHROID) TAB PO SCH (05:32)
[2021-01-05] MEDS: HYDROcodone/APAP 5 MG/325 MG (LORTAB) TAB PO PRN ×2 (05:32→09:23)
[2021-01-05 07:30] VITALS: BP 94/52
[2021-01-05 08:23] VITALS: BP 105/57
[2021-01-05] MEDS: FAMOTIDINE 20 MG (PEPCID) TABLET PO SCH (09:21)
[2021-01-05] MEDS: GEMFIBROZIL 600 MG (LOPID) TAB PO SCH (09:21)
[2021-01-05 11:45] VITALS: BP 105/57
== END 2021-01-05 11:45 | disposition home or self-care (01) | DRG 419 ==
LOC: EDUNIT# 05:45 → ER 05:46 → 4TH 11:09
PROVIDERS: ADMIT Surgery; ATTEND Surgery
PROC: 0FT44ZZ Resection of Gallbladder, Percutaneous Endoscopic Approach (ICD-10-PCS; principal; 2021-01-04 11:35)
DX: K80.61 Calculus of gallbladder and bile duct with cholecystitis, unspecified, with obstruction (principal); K21.9 Gastro-esophageal reflux disease without esophagitis; E78.00 Pure hypercholesterolemia, unspecified; E78.5 Hyperlipidemia, unspecified; E03.9 Hypothyroidism, unspecified; Z79.82 Long term (current) use of aspirin; Z20.822 Contact with and (suspected) exposure to COVID-19
CPT/HCPCS: 36415; 74177; 80053; 81000; 83605; 83690; 83880; 84484; 85007; 85025; 85027; 87040; 87081; 87636; 93005; 94760; 96361; 96365; 96375

== ENCOUNTER → 2023-01-16 | Outpatient (CLI) | payer OTHER ==
[~2023-01-16] MED LIST changes: +ACHD5005 PO; +BRIM5DRO2 OU; +CALC-50 PO; +FAMO20TA5 PO; +PRAV40TA2 PO
--- NOTE | 2023-01-16 11:40 | Diagnostic Imaging Report ---
EXAMINATION: MRI of the abdomen without contrast. MRCP TECHNIQUE: Multiplanar, multisequence MR images of the abdomen were obtained without intravenous contrast including 3D MIP MRCP images generated at an independent workstation. HISTORY: Recurrent abdominal pain. COMPARISON: 12/31/2020. FINDINGS: Liver: The liver is normal in signal and contour. Gallbladder and Bile Ducts: The gallbladder is surgically absent. Mild dilatation of the common bile duct measuring up to 1.0 cm with smooth tapering to the ampulla. No intrahepatic biliary ductal dilatation. There are no filling defects within the biliary tree. Pancreas: The pancreas is normal in signal and volume. No dilation of the pancreatic duct. Spleen: Normal. Adrenal glands: The adrenal glands are unremarkable. Kidneys: There is a subcentimeter right renal cyst. Kidneys are otherwise unremarkable without hydronephrosis. Lymph Nodes: No suspicious lymphadenopathy. Other: No ascites. There is a moderate hiatal hernia. IMPRESSION: 1. Minimal dilatation of the common bile duct up to 1.0 cm without filling defect or other evidence of obstruction. This may be secondary to reservoir effect from prior cholecystectomy. 2. No other acute abnormality in the visualized abdomen. Dictated by: Dictated on workstation # [id number]
== END ==
LOC: RAD 08:29
PROVIDERS: ATTEND Surgery
DX: Z87.19 Personal history of other diseases of the digestive system (principal)
CPT/HCPCS: 74181

== ENCOUNTER 2023-01-21 19:50 | Emergency (ER) | payer MEDICARE, OTHER ==
[~2023-01-21] VITALS: Ht 165.1 cm; Wt 79.4 kg
[2023-01-21 21:01] LABS: BASOPHILS % (AUTO) 0 % (0-10); EOSINOPHILS # (AUTO) 0.1 10^3/uL (0.0-0.3); EOSINOPHILS % (AUTO) 1 % (0-10); HEMATOCRIT 42 % (35-52); LYMPHOCYTES # (AUTO) 0.7 10^3/uL (1.0-4.0); LYMPHOCYTES % (AUTO) 12 % (12-44); MEAN CORPUSCULAR HEMOGLOBIN 29 pg (25-34); MEAN CORPUSCULAR HGB CONC 33 g/dL (32-36); MEAN CORPUSCULAR VOLUME 88 fL (80-99); MEAN PLATELET VOLUME 10.4 fL (9.0-12.2); MONOCYTES # (AUTO) 0.6 10^3/uL (0.0-1.0); MONOCYTES % (AUTO) 9 % (0-12); NEUTROPHILS # (AUTO) 4.9 10^3/uL (1.8-7.8); NEUTROPHILS % (AUTO) 78 % (42-75); PLATELET COUNT 179 10^3/uL (130-400); WHITE BLOOD COUNT 6.3 10^3/uL (4.3-11.0)
[2023-01-21 21:05] LABS: INR 0.9 (0.8-1.4); PROTHROMBIN TIME PATIENT 12.3 SEC (12.2-14.7)
[2023-01-21 21:13] LABS: ALANINE AMINOTRANSFERASE 11 U/L (0-55); ALBUMIN 3.9 GM/DL (3.2-4.5); ALKALINE PHOSPHATASE 88 U/L (40-136); BUN/CREATININE RATIO 19; CARBON DIOXIDE 22 MMOL/L (21-32); CHLORIDE 108 MMOL/L (98-107); GFR ESTIMATED 63; GLUCOSE 121 MG/DL (70-105); LIPASE 38 U/L (8-78); MAGNESIUM 1.9 MG/DL (1.6-2.4); POTASSIUM 3.9 MMOL/L (3.6-5.0); SODIUM 141 MMOL/L (135-145); TOTAL PROTEIN 6.6 GM/DL (6.4-8.2)
--- NOTE | 2023-01-21 21:15 | ED Chest Pain ---
General Chief Complaint: Chest Pain Stated Complaint: HEADACHE/ACHEY Nursing Triage Note: PT AMB TO RM 2 W C/O INT CP THAT RADIATES TO JAW AND LEFT ARM SX YESTERDAY AND GEN UNWELL FEELING/TOMAS. PT STATES SHE JUST DOES NOT FEEL GOOD AND HAS BEEN EXPERIENCING ABD PAIN FOR AN EXTENDED PERIOD OF TIME. MRI SCHEDUELD BY DR. MCKEON THIS PAST WK. PT A&OX4, DENIES CP AT THIS TIME. Source: patient Exam Limitations: no limitations History of Present Illness Date Seen by Provider: Jan 21, 2023 Time Seen by Provider: 20:05 Initial Comments This 82 year old woman presents to the ER via private vehicle with concerns about chest pain that radiates to her left arm and neck toward her jaw since yesterday. She also has a headache. She has a hiatal hernia and chronic abdominal pain that is currently under work-up with Dr. Mckeon. She recently had an MRCP which was reviewed in her chart and was noted to be unremarkable. She is status post cholecystectomy. She describes her pain as a heaviness in her chest and across to her shoulders since about 1900 tonight. Her abdominal pain has been present for about 2 years. Chart also revealed a negative stress test in 2019 she denies any respiratory symptoms such as cough or shortness of breath. Her primary care provider is Dr. Jose Elias Greco. Allergies and Home Medications Allergies Coded Allergies: No Known Drug Allergies (Unverified , 04/04/17) Patient Home Medication List Home Medication List Reviewed: Yes Aspirin (Aspirin EC) 81 Mg Tablet.dr, 81 MG PO HS, (Reported) Entered as Reported by: ELKIN YIN on 04/04/17 1543 Brimonidine Tartrate (Alphagan P) 5 Ml Drops, 1 DROP OU BID, (Reported) Entered as Reported by: SANDRA RAMIREZ on 01/01/21 0741 Calcium Carbonate/Vitamin D3 (Calcium 500 + Vit D3 400 Tab) 1 Each Tablet, 1 EACH PO DAILY, (Reported) Entered as Reported by: CAROLYN COX on 01/03/21 0901 Famotidine (Famotidine) 20 Mg Tablet, 20 MG PO DAILY, (Reported) Entered as Reported by: SANDRA RAMIREZ on 01/01/21 0741 Glucosamine Sulfate 2Kcl (Glucosamine) 1,000 Mg Tablet, 1,000 MG PO HS, (Reported) Entered as Reported by: ELKIN YIN on 04/04/17 1543 Hydrocodone/Acetaminophen (Hydrocodone-Acetamin 5-325 mg) 1 Each Tablet, 1 TAB PO Q4H PRN for PAIN-MODERATE (5-7) Prescribed by: ADRIANA BARAJAS on 01/04/21 1238 Levothyroxine Sodium (Levothyroxine Sodium) 50 Mcg Tablet, 50 MCG PO DAILY, (Reported) Entered as Reported by: ELKIN YIN on 04/04/17 1541 Pantoprazole Sodium (Protonix) 40 Mg Tablet.dr, 40 MG PO DAILY Prescribed by: JUDI CHEEK on 01/21/23 2332 Pravastatin Sodium (Pravastatin Sodium) 40 Mg Tablet, 40 MG PO HS, (Reported) Entered as Reported by: CAROLYN COX on 01/03/21 0904 Review of Systems Review of Systems Constitutional: no symptoms reported EENTM: No Symptoms Reported Respiratory: No Symptoms Reported Cardiovascular: See HPI Gastrointestinal: See HPI Genitourinary: No Symptoms Reported Musculoskeletal: no symptoms reported Skin: no symptoms reported Psychiatric/Neurological: No Symptoms Reported Endocrine: No Symptoms Reported Hematologic/Lymphatic: No Symptoms Reported Past Vgffjgu-Igcqgf-Xsqztf Hx Patient Social History Tobacco Use?: No Use of E-Cig and/or Vaping dev: No Substance use?: No Alcohol Use?: Yes Alcohol Frequency: Rarely Seasonal Allergies Seasonal Allergies: No Past Medical History Surgeries: Yes (vein stripping legs) Abdominal (multiple CBD stents), Appendectomy, Hysterectomy, Tonsillectomy, Vascular Surgery (vein stripping) Respiratory: No Currently Using CPAP: No Currently Using BIPAP: No Cardiac: Yes High Cholesterol Neurological: No 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 0.0oz. [id number]; 29.00 BMI Method:Stated General Appearance: No Apparent Distress, WD/WN HEENT: Normal ENT Inspection Neck: Normal Inspection; No JVD Respiratory: Chest Non Tender, Lungs Clear, Normal Breath Sounds, No Accessory Muscle Use, No Respiratory Distress Cardiovascular: Regular Rate, Rhythm, No Edema, No Murmur Gastrointestinal: Normal Bowel Sounds, Soft, Tenderness (mild upper abdominal TTP stated as chronic and unchanged) Extremity: Normal Inspection, No Pedal Edema Neurologic/Psychiatric: Alert, Oriented x3, No Motor/Sensory Deficits, Normal Mood/Affect Skin: Normal Color, Warm/Dry Progress/Results/Core Measures Results/Orders Lab Results Laboratory Tests Test 01/21/23 20:46 01/21/23 22:45 Range/Units White Blood Count 6.3 4.3-11.0 10^3/uL Red Blood Count 4.82 3.80-5.11 10^6/uL Hemoglobin 14.0 11.5-16.0 g/dL Hematocrit 42 35-52 % Mean Corpuscular Volume 88 80-99 fL Mean Corpuscular Hemoglobin 29 25-34 pg Mean Corpuscular Hemoglobin Concent 33 32-36 g/dL Red Cell Distribution Width 12.5 10.0-14.5 % Platelet Count 179 130-400 10^3/uL Mean Platelet Volume 10.4 9.0-12.2 fL Immature Granulocyte % (Auto) 0 % Neutrophils (%) (Auto) 78 H 42-75 % Lymphocytes (%) (Auto) 12 12-44 % Monocytes (%) (Auto) 9 0-12 % Eosinophils (%) (Auto) 1 0-10 % Basophils (%) (Auto) 0 0-10 % Neutrophils # (Auto) 4.9 1.8-7.8 10^3/uL Lymphocytes # (Auto) 0.7 L 1.0-4.0 10^3/uL Monocytes # (Auto) 0.6 0.0-1.0 10^3/uL Eosinophils # (Auto) 0.1 0.0-0.3 10^3/uL Basophils # (Auto) 0.0 0.0-0.1 10^3/uL Immature Granulocyte # (Auto) 0.0 0.0-0.1 10^3/uL Prothrombin Time 12.3 12.2-14.7 SEC INR Comment 0.9 0.8-1.4 Activated Partial Thromboplast Time 29 24-35 SEC Sodium Level 141 135-145 MMOL/L Potassium Level 3.9 3.6-5.0 MMOL/L Chloride Level 108 H 98-107 MMOL/L Carbon Dioxide Level 22 21-32 MMOL/L Anion Gap 11 5-14 MMOL/L Blood Urea Nitrogen 17 7-18 MG/DL Creatinine 0.90 0.60-1.30 MG/DL Estimat Glomerular Filtration Rate 63 BUN/Creatinine Ratio 19 Glucose Level 121 H 70-105 MG/DL Calcium Level 9.0 8.5-10.1 MG/DL Corrected Calcium 9.1 8.5-10.1 MG/DL Magnesium Level 1.9 1.6-2.4 MG/DL Total Bilirubin 1.0 0.1-1.0 MG/DL Aspartate Amino Transf (AST/SGOT) 18 5-34 U/L Alanine Aminotransferase (ALT/SGPT) 11 0-55 U/L Alkaline Phosphatase 88 40-136 U/L Myoglobin 32.9 10.0-92.0 NG/ML Troponin I < 0.028 < 0.028 <0.028 NG/ML Total Protein 6.6 6.4-8.2 GM/DL Albumin 3.9 3.2-4.5 GM/DL Lipase 38 8-78 U/L Influenza Type A (RT-PCR) Not Detected Not Detecte Influenza Type B (RT-PCR) Not Detected Not Detecte SARS-CoV-2 RNA (RT-PCR) Not Detected Not Detecte My Orders Orders - JUDI CELIS MD Covid 19 Inhouse Test (01/21/23 20:05) Influenza A And B By Pcr (01/21/23 20:05) Cbc With Automated Diff (01/21/23 20:51) Magnesium (01/21/23 20:51) Chest 1 View, Ap/Pa Only (01/21/23 20:51) Ekg Tracing (01/21/23 20:51) Comprehensive Metabolic Panel (01/21/23 20:51) Myoglobin Serum (01/21/23 20:51) Protime With Inr (01/21/23 20:51) Partial Thromboplastin Time (01/21/23 20:51) O2 (01/21/23 20:51) Monitor-Rhythm Ecg Trace Only (01/21/23 20:51) Ed Iv/Invasive Line Start (01/21/23 20:51) Troponin I Jenelle (01/21/23 20:51) Lipase (01/21/23 20:51) Ondansetron Injection (Ondansetron Inj (01/21/23 22:00) Lidocaine 2% Viscous 15 Ml (Xylocaine Vi (01/21/23 22:00) Antacid Suspension (Antacid Suspension (01/21/23 22:00) Troponin I Jenelle (01/21/23 22:45) Pantoprazole Tablet (Pantoprazole Tablet (01/21/23 23:30) Medications Given in ED Vital Signs/I&O 01/21/23 01/21/23 20:35 23:52 Temp 36.7 Pulse 82 74 Resp 20 18 B/P (MAP) 162/108 (126) 151/79 Pulse Ox 95 96 O2 Delivery Room Air Room Air Blood Pressure Mean: 126 Progress Progress Note : Time: 23:29 Progress Note Work on this case began at 2004 with review of chief complaint and viral swab orders. Nurse triage report received, orders placed and patient examined at 2050. All labs were reviewed and interpreted by me. CBC, CMP, serial troponins, magnesium, and viral swabs were all unremarkable. Chest x-ray was clear. ECG demonstrated no ischemic changes. She experienced significant improvement with GI cocktail. See discharge instructions for further discussion. Initial ECG Impression Date: Jan 22, 2023 Initial ECG Impression Time: 20:56 Initial ECG Rate: 80 Initial ECG Rhythm: Normal Sinus Comment Sinus rhythm with no ST elevation or depression. No abnormal intervals or axis deviation. Diagnostic Imaging Diagonstic Imaging: Xray Plain Films/CT/US/NM/MRI: chest Comments NAME: ELLI JARRETT [facility] REC#: [id number] PT STATUS: REG ER : 1940 PHYSICIAN: JUDI CELIS MD ADMIT DATE: 01/21/23/ER Draft Date of Exam:01/21/23 CHEST 1 VIEW, AP/PA ONLY INDICATION: Chest pain. COMPARISON: 04/05/2017. FINDINGS: Single frontal view of the chest demonstrates normal heart size and pulmonary vascularity. The lungs are well aerated and clear. No large pleural effusion or pneumothorax is seen. The visualized osseous structures show no acute abnormality. IMPRESSION: No acute cardiopulmonary process. Dictated on workstation # [id number] Dict: 01/21/232144 Trans: 01/21/232156 [facility] [id number] Interpreted by: SESAR STEWART MD Departure Impression Primary Impression: Atypical chest pain Additional Impression: Chronic abdominal pain Disposition: 01 HOME, SELF-CARE Condition: Improved Departure-Patient Inst. Decision time for Depature: 23:30 Referrals: JOSE ELIAS GRECO MD (PCP/Family) Primary Care Physician Patient Instructions: Abdominal Pain, Adult ED, Acid Reflux and GERD in Adults (DC), Gastritis ED Add. Discharge Instructions: Follow-up with Dr. Mckeon and your primary care provider soon as possible. In the meantime, start Protonix (pantoprazole) as prescribed. Avoid the following: Eating large meals, eating close to bedtime, caffeine, carbonation, chocolate, citrus fruits and juices, tomato products, mints, spicy foods, fatty/greasy foods, alcohol, tobacco, NSAID medications such as ibuprofen or naproxen, or anything else you know irritate your stomach. Return to care if you have worsening symptoms despite following these instructions. All discharge instructions reviewed with patient and/or family. Voiced understanding. Scripts Pantoprazole Sodium (Protonix) 40 Mg Tablet. 40 MG PO DAILY, #30 TAB Prov: JUDI CELIS MD 01/21/23 Copy Copies To 1: TONY MCKEON DO Copies To 2: JOSE ELIAS GRECO MD, JOSHUA T MD Jan 21, 2023 21:15
--- NOTE | 2023-01-21 21:58 | Diagnostic Imaging Report ---
INDICATION: Chest pain. COMPARISON: 04/05/2017. FINDINGS: Single frontal view of the chest demonstrates normal heart size and pulmonary vascularity. The lungs are well aerated and clear. No large pleural effusion or pneumothorax is seen. The visualized osseous structures show no acute abnormality. IMPRESSION: No acute cardiopulmonary process. Dictated by: Dictated on workstation # [id number]
[2023-01-21] MEDS ORDERED: LIDOCAINE 2% VISCOUS 15 ML UDC PO ONE (22:00)
[2023-01-21] MEDS ORDERED: ONDANSETRON INJECTION 4 MG/2 ML (SDV) IVP ONE (22:00)
[2023-01-21] MEDS ORDERED: ANTACID SUSPENSION 30 ML UDC PO ONE (22:00)
[2023-01-21] MEDS ORDERED: PANTOPRAZOLE 40 MG TABLET PO ONE (23:30)
[2023-01-21] MEDS ORDERED: PANT40TA2 PO (23:32)
[2023-01-21 23:52] VITALS: BP 151/79
== END 2023-01-21 23:52 | disposition home or self-care (01) ==
LOC: EDUNIT# 19:50 → ER 19:52
DX: R07.89 Other chest pain (principal); G89.29 Other chronic pain; R10.9 Unspecified abdominal pain; Z87.19 Personal history of other diseases of the digestive system; Z20.822 Contact with and (suspected) exposure to COVID-19
CPT/HCPCS: 36415; 71045; 80053; 83690; 83735; 83874; 84484; 85025; 85610; 85730; 87636; 93005; 93041

== ENCOUNTER 2023-01-31 06:01 | Outpatient (CLI) | payer MEDICARE ==
[~2023-01-31] VITALS: Ht 165.1 cm; Wt 81.7 kg
[~2023-01-31 06:01] MED LIST changes: +PANT40TA2 PO
[2023-01-31] MEDS ORDERED: URSO500T10 PO (09:37)
[2023-01-31] MEDS ORDERED: ALEN70SO4 PO (09:37)
[2023-01-31] MEDS ORDERED: OMEP40CA6 PO (09:37)
[2023-01-31] MEDS ORDERED: TOLT2CAP21 PO (09:37)
== END 2023-01-31 09:42 | disposition home or self-care (01) ==
LOC: PREOP 06:01
PROVIDERS: ATTEND Surgery
DX: Z01.818 Encounter for other preprocedural examination (principal)